=== PATIENT | female | born 1995 | race Hispanic/Latino ===

== ENCOUNTER 2018-08-15 17:51 | Inpatient (IN) | payer MEDICAID ==
[2018-08-15] MEDS ORDERED: BRETHINE SUB-Q PRN (18:12)
[2018-08-15] MEDS ORDERED: XYLOCAINE 2% INFILTRATI ONE (18:12)
[2018-08-15] MEDS ORDERED: MINERAL OIL PO PRN (18:12)
[2018-08-15] MEDS ORDERED: BRETHINE IVP PRN (18:12)
[2018-08-15] MEDS ORDERED: ZOFRAN IV PRN (18:12)
--- NOTE | 2018-08-15 18:12 | History and Physical Report ---
History of Present Illness Date of examination: 08/15/18 Date of admission: 08/15/18 17:53 Chief complaint: sent from [facility] History of present illness: Pt sent for IOL from [facility] due to having oligo and being GDM diet controlled at 38.6 weeks. Report on chart. GBS is negative EDC Calculations LMP: 08/23/2018 EDC Confirmation: 08/23/2018 Gestational Age: 17 5/7 weeks Past History : 2 Term Births: 1 Premature Births: 0 Living Children: 1 Para: 1 Mult. Births: 0 Prev : 0 Aborta: 0 Elect. Ab: 0 Spont. Ab: 0 Ectopics: 0 # 1 Delivery date: 08/13/2016 Weeks Gestation: 39 labor: no Delivery type: Hours of labor: 36 Anesthesia type: epidural Delivery location: [facility] Infant Sex: Male weight: 7-12 Name: Laurent Past Medical History: Bicornuate uterus Past Surgical History: Negative Past Surgical History Family History Summary: Other family member - Has No Family History of Ovarvian Cancer - Entered On: 03/20/2018 Other family member - Has No Family History of Colon Cancer - Entered On: 03/20/2018 Other family member - Has No Family History of Breast Cancer - Entered On: 03/20/2018 Other family member - Has Family History of Diabetes - Entered On: 03/20/2018 Social History: Marital Status: engaged Children: 1 Occupation: [employer] Risk Factors: Smoked Tobacco Use: Current every day smoker Cigarettes: Yes -- 2 pack(s) per day, Years smoked: 2013 Counseled to quit/cut down: yes Drug use: no HIV high-risk behavior: low risk Alcohol use: yes Drinks per day: social Dietary Counseling: pn yes Past Medical History 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 of genital herpes: no Genetic History Congenital Heart Defect: Mom: no Dad: no Yvonne Disease: Mom: no Dad: no Thalassemia Mom: no Dad: no Neural Tube Defect Mom: no Dad: no Down's Syndrome Mom: no Dad: no Fredy-Sachs Mom: no Dad: no Sickle Cell Disease/Trait Mom: no Dad: no Hemophilia Mom: no Dad: no Muscular Dystrophy Mom: no Dad: no Cystic Fibrosis Mom: no Dad: no Nichols Chorea Mom: no Dad: no Mental Retardation Mom: no Dad: no Fragile X Mom: no Dad: no Other Genetic/Chromosomal Disorder Mom: no Dad: no Child w/other defect Mom: no Dad: no Enviromental Exposures Xray Exposure: no Medication, drug, or alcohol use since LMP: no Chemical/Other Exposure: no Exposure to Cat Liter: yes Active Medications (reviewed today): ZOLOFT 25 MG ORAL TABLET (SERTRALINE HCL) Current Allergies (reviewed today): No known allergies Past History Past Medical History: other (see hpi) Past Surgical History: other (see hpi) COUNSELLORS History: other (see hpi) Family/Genetic History: other (see hpi) Social history: other (see hpi) - Obstetrical History Expected Date of Delivery: 08/23/18 Actual Gestation: 38 Week(s) 6 Day(s) : 2 Para: 1 Hx # Term Pregnancies: 1 (full term; GDM) Number of Living Children: 1 Medications and Allergies Allergies Allergy/AdvReac Type Severity Reaction Status Date / Time No Known Allergies Allergy Unverified 08/15/18 18:08 Review of Systems All systems: negative - Physical Exam Genitourinary (Female): Positive: other (cx 1cm as per charge nurse ) Results All other labs normal. Assessment and Plan - Patient Problems (1) 38 weeks gestation of Current Visit: Yes Status: Acute (2) GDM (gestational diabetes mellitus) Current Visit: Yes Status: Acute Qualifiers: Gestational diabetes mellitus control: diet-controlled Trimester: third trimester (3) Oligohydramnios in najera in third trimester Current Visit: Yes Status: Acute Plan to address problem: -admit -IOL as per MFM recommendations
[2018-08-15] MEDS ORDERED: PITOCin/NS 30 UNIT/500ML 30 UNITS/500 ML BAG IV SCH (19:00)
[2018-08-15] MEDS ORDERED: PITOCin/NS 20 UNIT/1000ML DRIP 20 UNITS/1,000 ML BAG IV SCH (19:00)
[2018-08-15] MEDS ORDERED: CERVIDIL VG ONE (20:00)
[2018-08-15 20:08] LABS: Hematocrit 33.7 % (30.3-42.9); Hemoglobin 11.7 gm/dl (10.1-14.3); Mean Corpuscular HGB Conc 35 % (30-34); Mean Corpuscular Volume 83 fl (79-97); Platelet Count 280 K/mm3 (140-440); Red Blood Count 4.05 M/mm3 (3.65-5.03); Red Cell Distribution Width 14.8 % (13.2-15.2)
--- NOTE | 2018-08-16 06:09 | Progress Note ---
Assessment and Plan Pt sleeping soundly thru irregular mild ctx. Pt voices no c/o. VSS Ctx as noted FHR Cat 1. Deferred SVE @ this time. IUP @ 39w IOL Oligo & GDM diet P: Cervidil in place to be removed @ 1100. AM care and diet BS now. Subjective - Subjective Date of service: 08/16/18 (IOL Cervidil in place) Principal diagnosis: IOL 39w0d GDM; oligo Patient reports: movement normal Objective - Vital Signs Vital Signs: Vital Signs - 12hr 08/15/18 08/15/18 08/15/18 18:29 19:11 19:14 Temperature 97.5 F L Pulse Rate 94 H 86 Respiratory 18 Rate Blood Pressure 121/64 O2 Sat by Pulse 96 Oximetry 08/15/18 08/15/18 08/15/18 19:30 22:30 22:34 Temperature 97.7 F Pulse Rate 92 H 102 H Respiratory 18 Rate Blood Pressure O2 Sat by Pulse 96 96 Oximetry 08/15/18 08/15/18 08/15/18 22:37 22:39 22:42 Temperature Pulse Rate 92 H 95 H 91 H Respiratory Rate Blood Pressure O2 Sat by Pulse 94 94 94 Oximetry 08/15/18 08/15/18 08/15/18 22:45 22:48 22:49 Temperature Pulse Rate 92 H 94 H 102 H Respiratory Rate Blood Pressure O2 Sat by Pulse 94 94 94 Oximetry 08/15/18 08/15/18 08/15/18 22:54 23:00 23:03 Temperature 98.0 F Pulse Rate 104 H 92 H 92 H Respiratory 18 Rate Blood Pressure 131/70 O2 Sat by Pulse 92 92 Oximetry 08/15/18 08/15/18 08/15/18 23:04 23:07 23:10 Temperature Pulse Rate 90 99 H Respiratory Rate Blood Pressure O2 Sat by Pulse 92 93 93 Oximetry 08/15/18 08/15/18 08/15/18 23:14 23:20 23:22 Temperature Pulse Rate 90 96 H 93 H Respiratory Rate Blood Pressure O2 Sat by Pulse 92 98 94 Oximetry 08/15/18 08/15/18 08/15/18 23:25 23:30 23:34 Temperature Pulse Rate 90 97 H 96 H Respiratory Rate Blood Pressure O2 Sat by Pulse 93 91 92 Oximetry 08/15/18 08/15/18 08/15/18 23:39 23:45 23:50 Temperature Pulse Rate 94 H 85 91 H Respiratory Rate Blood Pressure O2 Sat by Pulse 92 93 93 Oximetry 08/15/18 08/15/18 08/15/18 23:54 23:58 23:59 Temperature Pulse Rate 96 H 96 H 97 H Respiratory Rate Blood Pressure O2 Sat by Pulse 93 94 94 Oximetry 08/16/18 08/16/18 08/16/18 00:04 00:10 00:13 Temperature Pulse Rate 97 H 102 H 101 H Respiratory Rate Blood Pressure O2 Sat by Pulse 93 94 94 Oximetry 08/16/18 08/16/18 08/16/18 00:15 00:19 00:24 Temperature Pulse Rate 89 94 H 95 H Respiratory Rate Blood Pressure O2 Sat by Pulse 95 93 93 Oximetry 08/16/18 08/16/18 08/16/18 00:29 00:34 00:39 Temperature Pulse Rate 95 H 98 H 96 H Respiratory Rate Blood Pressure O2 Sat by Pulse 94 94 94 Oximetry 08/16/18 08/16/18 08/16/18 00:42 00:44 00:50 Temperature Pulse Rate 94 H 99 H 96 H Respiratory Rate Blood Pressure O2 Sat by Pulse 94 93 93 Oximetry 08/16/18 08/16/18 08/16/18 00:53 00:54 00:59 Temperature Pulse Rate 94 H 102 H 104 H Respiratory Rate Blood Pressure O2 Sat by Pulse 94 94 95 Oximetry 08/16/18 08/16/18 08/16/18 01:04 01:09 01:11 Temperature Pulse Rate 90 94 H 96 H Respiratory Rate Blood Pressure 120/58 O2 Sat by Pulse 95 94 94 Oximetry 08/16/18 08/16/18 08/16/18 01:14 01:18 01:19 Temperature Pulse Rate 99 H 98 H 101 H Respiratory Rate Blood Pressure O2 Sat by Pulse 95 94 94 Oximetry 08/16/18 08/16/18 08/16/18 01:24 01:29 01:34 Temperature Pulse Rate 95 H 100 H 100 H Respiratory Rate Blood Pressure O2 Sat by Pulse 96 98 97 Oximetry 08/16/18 08/16/18 08/16/18 01:40 01:45 01:50 Temperature Pulse Rate 97 H 99 H 104 H Respiratory Rate Blood Pressure O2 Sat by Pulse 97 97 98 Oximetry 08/16/18 08/16/18 08/16/18 01:55 02:00 02:05 Temperature Pulse Rate 100 H 101 H 97 H Respiratory Rate Blood Pressure O2 Sat by Pulse 97 97 97 Oximetry 08/16/18 08/16/18 08/16/18 02:10 02:15 02:20 Temperature Pulse Rate 96 H 100 H 100 H Respiratory Rate Blood Pressure O2 Sat by Pulse 97 96 96 Oximetry 08/16/18 08/16/18 08/16/18 02:25 02:30 02:35 Temperature Pulse Rate 96 H 92 H 95 H Respiratory Rate Blood Pressure O2 Sat by Pulse 95 96 95 Oximetry 08/16/18 08/16/18 08/16/18 02:40 02:49 02:54 Temperature Pulse Rate 85 90 94 H Respiratory Rate Blood Pressure O2 Sat by Pulse 95 95 94 Oximetry 08/16/18 08/16/18 08/16/18 02:59 03:01 03:02 Temperature Pulse Rate 100 H 98 H 100 H Respiratory Rate Blood Pressure 117/65 O2 Sat by Pulse 94 94 Oximetry 08/16/18 08/16/18 08/16/18 03:04 03:09 03:14 Temperature Pulse Rate 98 H 94 H 103 H Respiratory Rate Blood Pressure O2 Sat by Pulse 95 94 94 Oximetry 08/16/18 03:17 Temperature Pulse Rate 93 H Respiratory Rate Blood Pressure O2 Sat by Pulse 94 Oximetry - Exam Breasts: deferred Cardiovascular: Regular rate Lungs: Normal air movement Abdomen: Present: normal appearance, soft. Absent: distention, tenderness Uterus: Present: normal FHR: auscultation normal, category 1 Uterine Contraction Monitor Mode: External Uterine Contraction Pattern: Irregular Uterine Tone Measurement Phase: Resting Uterine Contraction Intensity: Mild Extremities: edema Deep Tendon Reflex Grade: Normal +2 - Labs Labs: Abnormal Labs 08/15/18 19:50 MCHC 35 H Laboratory Results - last 24 hr 08/15/18 08/15/18 08/15/18 18:15 19:50 19:50 WBC 9.5 RBC 4.05 Hgb 11.7 Hct 33.7 MCV 83 MCH 29 MCHC 35 H RDW 14.8 Plt Count 280 POC Glucose 89 Blood Type AB POSITIVE Antibody Screen Negative
[2018-08-16] MEDS: SUBLIMAZE IV PRN ×2 (06:48→10:54)
--- NOTE | 2018-08-16 07:22 | Event Note ---
Date: 08/16/18 (pt requested and was given medication for pain) SVE 1-2,50,-[address] Will plan pitocin per protocol once cervidil is removed.
[2018-08-16] MEDS: LACTATED RINGERS 1,000 ML IV SCH ×3 (09:51→12:36)
[2018-08-16] MEDS ORDERED: PITOCin/NS 30 UNIT/500ML 30 UNITS/500 ML BAG IV SCH (10:00)
[2018-08-16] MEDS ORDERED: NARCAN 2 MG/2 ML IV PRN (11:51)
--- NOTE | 2018-08-16 11:51 | Anesthesia Consultation ---
Anesthesia Consult and Med Hx Date of service: 08/16/18 - Airway Anesthetic Teeth Evaluation: Good ROM Head & Neck: Adequate Mental/Hyoid Distance: Adequate Mallampati Class: Class II Intubation Access Assessment: Good - Pulmonary Exam CTA: Yes - Cardiac Exam Cardiac Exam: No Murmur - Pre-Operative Health Status ASA Pre-Surgery Classification: ASA2 Proposed Anesthetic Plan: Epidural - Pulmonary Hx Asthma: No COPD: No Hx Pneumonia: No - Cardiovascular System Hx Hypertension: No - Central Nervous System Hx Seizures: No Hx Psychiatric Problems: No - Endocrine Hx Renal Disease: No Hx End Stage Renal Disease: No Hx Hypothyroidism: No Hx Hyperthyroidism: No - Hematic Hx Anemia: No Hx Sickle Cell Disease: No - Other Systems Hx Alcohol Use: No
[2018-08-16] MEDS ORDERED: fentaNYL-BUPIV 2 MCG/ML-0.125% 200 MCG/100 ML BAG EPIDURAL SCH (12:00)
[2018-08-16] MEDS ORDERED: TUCKS PAD TP PRN (18:31)
[2018-08-16] MEDS ORDERED: TYLENOL PO PRN (18:31)
[2018-08-16] MEDS ORDERED: MILK OF MAGNESIA PO PRN (18:31)
[2018-08-16] MEDS ORDERED: LANSINOH TP PRN (18:31)
[2018-08-16] MEDS ORDERED: DULCOLAX PR PRN (18:31)
[2018-08-16] MEDS ORDERED: PHENERGAN PO PRN (18:31)
--- NOTE | 2018-08-16 18:54 | Procedure Note ---
OB Delivery Note - Delivery Date of Delivery: 08/16/18 Cafe Site Attendant: JOSEPH NARANJO Estimated blood loss: 300cc - Vaginal Delivery presentation: vertex Delivery position: OA Intrapartum events: other(please specify) (oligo; GDM diet) Delivery induction: cervidil Delivery augmentation: pitocin Delivery monitor: internal FHT, internal uterine Route of delivery: Delivery placenta: spontaneous Delivery cord: 3 umbilical vessels Episiotomy: none Delivery laceration: none Anesthesia: epidural Delivery comments: live born male over intact perineum Baby to mom's abdomen skin to skin Placenta and membrane delivered complete and intact, 3 vessel cord. Placenta and membrane sent to pathology. Pit IVFs 8/9, EBL 300, Wgt 6-15. Mom and baby remain LDR stable. - A at 1 minute: 8 at 5 minutes: 9 Infant Gender: Male (wgt 6-15)
[2018-08-16] MEDS ORDERED: SODIUM CHLORIDE FLUSH SYRINGE 10 ML IV SCH (19:00)
[2018-08-16] MEDS ORDERED: BENADRYL PO PRN (19:31)
[2018-08-16] MEDS ORDERED: PITOCin/NS 20 UNIT/1000ML DRIP 20,000 MILLIUNITS/1,000 ML BAG IV ONE (20:12)
[2018-08-16] MEDS: IBUPROFEN PO SCH (20:43)
[2018-08-16] MEDS: COLACE PO SCH (22:00)
[2018-08-17] MEDS: IBUPROFEN PO SCH ×3 (05:56→18:46)
[2018-08-17] MEDS ORDERED: BOOSTRIX IM ONE (06:00)
[2018-08-17 07:49] LABS: Hematocrit 31.2 % (30.3-42.9); Hemoglobin 10.3 gm/dl (10.1-14.3)
--- NOTE | 2018-08-17 08:15 | Progress Note ---
Assessment and Plan patient doing well, no complaints. lochia scant, fundus firm, VSSAF, H&H 10.3/31.2. Pt bottle feeding and pumping. Continue current management and anticipate d/c home tomorrow. - Patient Problems (1) Normal spontaneous vaginal delivery Current Visit: Yes Status: Acute Subjective - Subjective Date of service: 08/17/18 Principal diagnosis: day #1 s/p Patient reports: appetite normal, voiding normally, pain well controlled, ambulating normally, no dizzy ambulation, no nauseated [place]: doing well, bottle feeding Objective - Vital Signs Latest vital signs: Vital Signs Temp Pulse Resp BP Pulse Ox 08/17/18 05:47 97.4 F L 82 18 128/68 96 08/17/18 01:11 97.7 F 91 H 18 119/73 96 08/16/18 20:19 18 08/16/18 19:51 98.8 F 101 H 18 112/66 95 08/16/18 19:20 102 H 128/62 08/16/18 19:05 112 H 120/71 08/16/18 18:50 103 H 123/67 08/16/18 18:35 107 H 124/60 08/16/18 18:30 97.2 F L 08/16/18 18:05 117 H 123/58 08/16/18 18:03 118 H 120/84 08/16/18 17:41 122 H 98 08/16/18 17:35 136 H 117/77 08/16/18 17:21 117 H 122/73 08/16/18 17:05 109 H 129/67 08/16/18 16:51 108 H 122/66 08/16/18 16:36 109 H 125/62 08/16/18 16:20 106 H 113/62 08/16/18 16:05 104 H 111/59 08/16/18 15:51 100 H 124/63 08/16/18 15:36 112 H 123/71 08/16/18 15:20 109 H 120/65 08/16/18 15:05 113 H 126/72 08/16/18 14:50 93 H 120/60 08/16/18 14:35 94 H 113/56 08/16/18 14:20 91 H 111/57 08/16/18 14:12 97.1 F L 20 08/16/18 14:05 86 104/51 08/16/18 13:51 84 103/52 08/16/18 13:35 85 98/50 08/16/18 13:20 97 H 103/49 08/16/18 13:06 92 H 128/58 08/16/18 12:51 99 H 119/61 08/16/18 12:36 106 H 114/66 08/16/18 12:22 101 H 93 08/16/18 12:20 101 H 96 08/16/18 12:17 93 H 108/53 08/16/18 12:15 105 H 94 08/16/18 12:14 97 H 109/55 08/16/18 12:12 103 H 115/59 08/16/18 12:09 109 H 108/58 98 08/16/18 12:06 102 H 108/59 08/16/18 12:04 103 H 95 08/16/18 12:03 109 H 112/59 08/16/18 12:00 105 H 118/63 08/16/18 11:59 110 H 98 08/16/18 11:56 100 H 120/62 08/16/18 11:54 113 H 97 08/16/18 11:53 105 H 119/66 08/16/18 11:51 94 H 118/57 08/16/18 11:50 96 H 94 08/16/18 11:49 90 96 08/16/18 11:48 100 H 126/68 08/16/18 11:44 100 H 129/71 96 08/16/18 11:39 108 H 137/67 97 08/16/18 11:34 102 H 97 08/16/18 11:26 92 H 123/63 08/16/18 11:09 91 H 122/63 08/16/18 10:54 89 125/62 08/16/18 10:39 90 124/60 08/16/18 10:25 93 H 127/65 08/16/18 10:10 95 H 97/53 08/16/18 09:55 93 H 133/58 08/16/18 09:25 86 100/53 08/16/18 08:25 92 H 126/65 Intake and Output 08/16/18 08/17/18 08/17/18 23:59 07:59 15:59 Intake Total 360 Output Total 800 Balance -440 Intake: Intake, Free Water 360 Output: Urine 800 Void 800 Other: Total, Output Amount 800 # Voids Void 1 Estimated Blood Loss 300 - Exam Breasts: Present: normal Cardiovascular: Present: Regular rate Lungs: Present: Clear to auscultation, Normal air movement Abdomen: Present: normal appearance, soft Vulva: both: normal Uterus: Present: normal, firm, fundal height at umbilicus Extremities: Present: normal
[2018-08-17] MEDS: COLACE PO SCH ×2 (10:22→21:17)
[2018-08-17] MEDS ORDERED: M-M-R II VACCINE SUB-Q ONE (18:31)
[2018-08-18] MEDS: IBUPROFEN PO SCH ×2 (00:45→06:01)
--- NOTE | 2018-08-18 08:32 | Discharge Summary ---
Providers - Providers Date of Admission: 08/15/18 17:53 Date of discharge: 08/18/18 (pt agrees with d/c) Attending physician: AMIRAH HAQ Primary care physician: AMIRAH HAQ Hospitalization Reason for admission: active labor Delivery: Episiotomy: none Laceration: none Incision: normal Other procedures: none complications: none Discharge diagnosis: IUP at term delivered [place] baby: male (declines circumcision) Hospital course: uncomplicated vaginal delivery Pt resting No c/o voiced VSS FF below umb Lochia small perineum intact H&H s table No s/sx of anemia Doing well s/p vag delivery P: d/c today with instructions RTO 4 weeks PP care. Condition at discharge: Good Disposition: DC-01 TO HOME OR SELFCARE - Discharge Diagnoses (1) Normal spontaneous vaginal delivery Status: Acute Comment: RTO 4 weeks PP care Plan - Discharge Medications Prescriptions: Ibuprofen [Motrin 800 MG tab] 800 mg PO TID PRN #30 tablet PRN Reason: Pain Lidocain2.5%/Prilocai2.5% [Emla] 5 gm TP PRN #1 tube - Provider Discharge Summary Activity: routine, no sex for 6 weeks, no heavy lifting 4 weeks, no strenuous exercise Diet: routine Instructions: routine Additional instructions: [] Smoking cessation referral if applicable(refer to patient education folder for contact #) [] Refer to [facility]'s [facility] Booklet Call your doctor immediately for: * Fever > 100.5 * Heavy vaginal bleeding ( >1 pad per hour) * Severe persistent headache * Shortness of breath * Reddened, hot, painful area to leg or breast * Drainage or odor from incision. * Keep incision clean and dry at all times and follow doctor's instructions regarding bathing/showering - Follow up plan Follow up: AMIRAH HAQ MD [Primary Care Provider] - 09/17/18 (Congratulations! Please call [phone] to schedule your visit in 4 weeks. Take Motrin for cramping/pain. Call with concerns.)
[2018-08-18 13:33] VITALS: BP 128/77
== END 2018-08-18 13:11 | disposition home or self-care (01) | DRG 775 ==
LOC: TRG 17:51 → LD 17:53 → OB 08-16 19:44
PROVIDERS: ADMIT Obstetrics & Gynecology; ATTEND Obstetrics & Gynecology
PROC: 10E0XZZ Delivery of Products of Conception, External Approach (ICD-10-PCS; principal; 2018-08-16)
PROC: 3E0R3BZ Introduction of Anesthetic Agent into Spinal Canal, Percutaneous Approach (ICD-10-PCS; 2018-08-16)
PROC: 00HU33Z Insertion of Infusion Device into Spinal Canal, Percutaneous Approach (ICD-10-PCS; 2018-08-16)
PROC: 3E0P7VZ Introduction of Hormone into Female Reproductive, Via Natural or Artificial Opening (ICD-10-PCS; 2018-08-16)
PROC: 3E0234Z Introduction of Serum, Toxoid and Vaccine into Muscle, Percutaneous Approach (ICD-10-PCS; 2018-08-17)
DX: O41.03X0 Oligohydramnios, third trimester, not applicable or unspecified (principal); O34.03 Maternal care for unspecified congenital malformation of uterus, third trimester; O99.334 Smoking (tobacco) complicating childbirth; F17.210 Nicotine dependence, cigarettes, uncomplicated; O24.420 Gestational diabetes mellitus in childbirth, diet controlled; O99.314 Alcohol use complicating childbirth; Z3A.38 38 weeks gestation of pregnancy; Z37.0 Single live birth; Z83.3 Family history of diabetes mellitus; Z72.89 Other problems related to lifestyle; Q51.9 Congenital malformation of uterus and cervix, unspecified; Z23 Encounter for immunization
CPT/HCPCS: 36415; 59200; 82962; 85014; 85018; 85027; 86592; 86850; 86900; 86901; 88307; 90471; 90715; G0378; A6250; J2405; J2590; J3010; J7120

== ENCOUNTER 2019-04-10 04:07 | Emergency (ER) | payer SELFPAY ==
[2019-04-10 04:27] LABS: Basophils # (Auto) 0.1 K/mm3 (0.0-0.1); Basophils % (Auto) 0.6 % (0.0-1.8); Eosinophils # (Auto) 0.1 K/mm3 (0.0-0.4); Eosinophils % (Auto) 1.2 % (0.0-4.3); Hemoglobin 13.5 gm/dl (10.1-14.3); Lymphocytes # (Auto) 4.2 K/mm3 (1.2-5.4); Lymphocytes % (Auto) 43.3 % (13.4-35.0); Mean Corpuscular HGB Conc 34 % (30-34); Mean Corpuscular Volume 85 fl (79-97); Monocytes # (Auto) 0.5 K/mm3 (0.0-0.8); Monocytes % (Auto) 5.2 % (0.0-7.3); Platelet Count 306 K/mm3 (140-440); Red Blood Count 4.69 M/mm3 (3.65-5.03); Red Cell Distribution Width 16.2 % (13.2-15.2)
[2019-04-10 04:59] LABS: Alanine Aminotransferase 13 units/L (7-56); Albumin 3.8 g/dL (3.9-5); BUN/Creatinine Ratio 23; Blood Urea Nitrogen 14 mg/dL (7-17); Calcium 9.4 mg/dL (8.4-10.2); Hemolysis Index 19
[2019-04-10 05:22] LABS: Bacteria,Urine 2+ /HPF (Negative); Bilirubin,Urine NEG (Negative); Blood,Urine NEG (Negative); Color,Urine Yellow (Yellow); Mucus,Urine FEW /HPF; Protein,Urine <15 mg/dL mg/dL (Negative); Urobilinogen,Urine < 2.0 mg/dL (<2.0)
--- NOTE | 2019-04-10 06:45 | XRay Report ---
CHEST 2 VIEWS INDICATION: chest pain right. COMPARISON: None. FINDINGS: Support devices: None. Heart: Within normal limits. Lungs/Pleura: No acute air space or interstitial disease. No significant pleural effusion. IMPRESSION: No acute findings. Signer Name: Josesito Del Angel MD Signed: 04/10/2019 6:41 AM Workstation Name: [id number]
--- NOTE | 2019-04-10 07:01 | Emergency Department Report ---
ED General Adult HPI - General Chief complaint: Abdominal Pain Stated complaint: ABD PAIN Time Seen by Provider: 04/10/19 05:46 Source: patient Mode of arrival: Ambulatory Limitations: No Limitations - History of Present Illness Initial comments: 23-year-old female to emergency department complaining of spontaneous an acute onset of right flank/back pain associated with a productive cough pain that worsens with deep breathing. She reports no dysuria, no vaginal discharge, no vaginal bleeding, no trauma. Reports no hemoptysis, no hematemesis, hematochezia. No fever, chills, sweats. Patient states she was fine on the on yesterday, woke up with this discomfort.. -: Sudden, hour(s) Radiation: non-radiation Quality: aching, sharp Consistency: constant Improves with: none Worsens with: none Associated Symptoms: cough. denies: loss of appetite, malaise, nausea/vomiting, shortness of breath, syncope, weakness Treatments Prior to Arrival: none - Related Data Home Medications Medication Instructions Recorded Confirmed Last Taken Vit,Calc76/Iron/Folic 1 each PO DAILY 08/15/18 08/15/18 1 Week Ago [Pnv 29-1 Tablet] ~08/08/18 Previous Rx's Medication Instructions Recorded Last Taken Type Ibuprofen [Motrin 800 MG tab] 800 mg PO TID PRN #30 tablet 08/18/18 Unknown Rx Lidocain2.5%/Prilocai2.5% [Emla] 5 gm TP PRN #1 tube 08/18/18 Unknown Rx Benzonatate [Tessalon Perles] 100 mg PO Q8HR PRN #20 capsule 04/10/19 Unknown Rx Ketorolac [Toradol] 10 mg PO Q6H PRN #15 tablet 04/10/19 Unknown Rx Allergies Allergy/AdvReac Type Severity Reaction Status Date / Time No Known Allergies Allergy Verified 04/10/19 04:13 ED Review of Systems ROS: Stated complaint: ABD PAIN Other details as noted in HPI Comment: All other systems reviewed and negative ED Past Medical Hx - Past Medical History Hx Hypertension: No Hx Congestive Heart Failure: No Hx Diabetes: Yes (gestational only) Hx Deep Vein Thrombosis: No Hx Renal Disease: No Hx Sickle Cell Disease: No Hx Seizures: No Hx Asthma: No Hx COPD: No Hx HIV: No - Surgical History Past Surgical History?: No - Social History Smoking Status: Current Every Day Smoker Substance Use Type: Methamphetamines - Medications Home Medications: Home Medications Medication Instructions Recorded Confirmed Last Taken Type Vit,Calc76/Iron/Folic 1 each PO DAILY 08/15/18 08/15/18 1 Week Ago History [Pnv 29-1 Tablet] ~08/08/18 Ibuprofen [Motrin 800 MG tab] 800 mg PO TID PRN #30 tablet 08/18/18 Unknown Rx Lidocain2.5%/Prilocai2.5% [Emla] 5 gm TP PRN #1 tube 08/18/18 Unknown Rx Benzonatate [Tessalon Perles] 100 mg PO Q8HR PRN #20 capsule 04/10/19 Unknown Rx Ketorolac [Toradol] 10 mg PO Q6H PRN #15 tablet 04/10/19 Unknown Rx ED Physical Exam - General Limitations: No Limitations General appearance: alert, in no apparent distress - Head Head exam: Present: atraumatic, normocephalic - Eye Eye exam: Present: normal appearance, PERRL, EOMI Pupils: Present: normal accommodation - ENT ENT exam: Present: normal exam, normal orophraynx, mucous membranes moist, TM's normal bilaterally - Neck Neck exam: Present: normal inspection, full ROM. Absent: meningismus, ly mphadenopathy, thyromegaly - Respiratory Respiratory exam: Present: normal lung sounds bilaterally, chest wall tenderness (tenderness to the right rib region.). Absent: respiratory distress, rales, rhonchi, stridor, accessory muscle use, decreased breath sounds, prolonged expiratory - Cardiovascular Cardiovascular Exam: Present: regular rate, normal rhythm. Absent: systolic murmur, diastolic murmur, rubs, gallop - GI/Abdominal GI/Abdominal exam: Present: soft, normal bowel sounds - Extremities Exam Extremities exam: Present: normal inspection - Back Exam Back exam: Present: normal inspection - Neurological Exam Neurological exam: Present: alert, oriented X3 - Psychiatric Psychiatric exam: Present: normal affect, normal mood - Skin Skin exam: Present: warm, dry, intact, normal color. Absent: rash ED Medical Decision Making - Lab Data Result diagrams: 04/10/19 04:17 04/10/19 04:17 - Radiology Data Radiology results: report reviewed (no acute processes) - Medical Decision Making 23-year-old female to emergency Department with her mom who is here for chronic back pain complaining of sudden onset of rib pain associated with cough, conge stion. Labs and chest x-ray all were normal and not suggestive of any pneumonia or severe bronchitis. Pain is reproducible with various range of motion and palpation. Suggestive of a costochondral discomfort. There is no deformities noted. No subcutaneous emphysema. No bruising lifts heaves, thrills. There appears to be no emergent medical conditions present Critical care attestation.: If time is entered above; I have spent that time in minutes in the direct care of this critically ill patient, excluding procedure time. ED Disposition Clinical Impression: Cough, Rib pain Disposition: DC-01 TO HOME OR SELFCARE Is pt being admited?: No Does the pt Need Aspirin: No Condition: Stable Instructions: Abdominal Pain (ED), Chest Pain (ED), Acute Cough (ED) Referrals: PRIMARY CARE [Primary Care Provider] - 3-5 Days [facility] [Provider Group] - 3-5 Days
== END 2019-04-10 07:24 | disposition home or self-care (01) ==
LOC: ED 04:07
DX: R05 Cough (principal); R07.81 Pleurodynia; M54.9 Dorsalgia, unspecified; G89.29 Other chronic pain; E11.9 Type 2 diabetes mellitus without complications; F17.200 Nicotine dependence, unspecified, uncomplicated; F15.10 Other stimulant abuse, uncomplicated; Z79.899 Other long term (current) drug therapy
CPT/HCPCS: 36415; 71046; 80053; 81001; 84703; 85025; 87076; 87086; 87186

== ENCOUNTER 2019-09-12 00:19 | Emergency (ER) | payer SELFPAY ==
[2019-09-12 00:44] VITALS: BP 109/71
[2019-09-12] MEDS ORDERED: MORPHINE 4 MG/1 ML INJ IV ONE (01:47)
[2019-09-12] MEDS ORDERED: ONDANSETRON 4 MG/2 ML INJ IV ONE (01:47)
[2019-09-12 01:50] LABS: Basophils % (Auto) 0.3 % (0.0-1.8); Eosinophils # (Auto) 0.1 K/mm3 (0.0-0.4); Eosinophils % (Auto) 0.8 % (0.0-4.3); Hematocrit 37.1 % (30.3-42.9); Hemoglobin 12.3 gm/dl (10.1-14.3); Lymphocytes # (Auto) 2.5 K/mm3 (1.2-5.4); Lymphocytes % (Auto) 25.7 % (13.4-35.0); Mean Corpuscular HGB Conc 33 % (30-34); Mean Corpuscular Volume 89 fl (79-97); Monocytes # (Auto) 0.5 K/mm3 (0.0-0.8); Monocytes % (Auto) 5.2 % (0.0-7.3); Platelet Count 306 K/mm3 (140-440); Red Blood Count 4.17 M/mm3 (3.65-5.03); Red Cell Distribution Width 14.5 % (13.2-15.2)
[2019-09-12 02:09] LABS: Albumin 3.8 g/dL (3.9-5); BUN/Creatinine Ratio 24; Blood Urea Nitrogen 12 mg/dL (7-17); Calcium 9.2 mg/dL (8.4-10.2); Hemolysis Index 5
[2019-09-12 02:12] LABS: Alanine Aminotransferase < 5 units/L (7-56)
--- NOTE | 2019-09-12 02:17 | Emergency Department Report ---
ED Abdominal Pain HPI - General Chief Complaint: Abdominal Pain Stated Complaint: ABDOMINAL PAIN Time Seen by Provider: 09/12/19 01:16 Source: patient Mode of arrival: Ambulatory Limitations: No Limitations - History of Present Illness Initial Comments: 23-year-old female without significant past medical history presents with complaints of right upper quadrant/right flank pain 2 days. States the pain was intermittent and is now constant. She rates her pain as a 10/10 in severity and describes it as a stabbing type pain that worsens with ambulation and lying on her right side. She denies any nausea/vomiting, dysuria/hematuria/urinary frequency, constipation/melena/hematochezia, or history of gallstones or kidney stones. She also denies any trauma to her abdomen or right ribs. She denies worsening of the pain with food intake. MD Complaint: abdominal pain, flank pain Location: RUQ, R flank - Related Data Home Medications Medication Instructions Recorded Confirmed Last Taken Vit,Calc76/Iron/Folic 1 each PO DAILY 08/15/18 08/15/18 1 Week Ago [Pnv 29-1 Tablet] ~08/08/18 Previous Rx's Medication Instructions Recorded Last Taken Type Ibuprofen [Motrin 800 MG tab] 800 mg PO TID PRN #30 tablet 08/18/18 Unknown Rx Lidocain2.5%/Prilocai2.5% [Emla] 5 gm TP PRN #1 tube 08/18/18 Unknown Rx Benzonatate [Tessalon Perles] 100 mg PO Q8HR PRN #20 capsule 04/10/19 Unknown Rx Ketorolac [Toradol] 10 mg PO Q6H PRN #15 tablet 04/10/19 Unknown Rx Acetaminophen/Codeine [Tylenol 1 tab PO Q8H PRN #8 tab 09/12/19 Unknown Rx /Codeine # 3 tab] Ciprofloxacin HCl [Ciprofloxacin 500 mg PO Q12HR 7 Days #14 tab 09/12/19 Unknown Rx TAB] Allergies Allergy/AdvReac Type Severity Reaction Status Date / Time No Known Allergies Allergy Verified 04/10/19 04:13 ED Review of Systems ROS: Stated complaint: ABDOMINAL PAIN Other details as noted in HPI Constitutional: denies: chills, diaphoresis, fever Respiratory: denies: cough, shortness of breath Cardiovascular: denies: chest pain Endocrine: denies: excessive sweating Gastrointestinal: abdominal pain. denies: nausea, vomiting, diarrhea, constipation, hematemesis, melena, hematochezia Genitourinary: denies: urgency, dysuria, frequency, hematuria Musculoskeletal: denies: back pain Skin: denies: lesions Neurological: denies: headache, weakness Hematological/Lymphatic: denies: easy bleeding, easy bruising ED Past Medical Hx - Past Medical History Previous Medical History?: Yes Hx Hypertension: No Hx Congestive Heart Failure: No Hx Diabetes: Yes (gestational only) Hx Deep Vein Thrombosis: No Hx Renal Disease: No Hx Sickle Cell Disease: No Hx Seizures: No Hx Asthma: No Hx COPD: No Hx HIV: No - Surgical History Past Surgical History?: No - Social History Smoking Status: Current Every Day Smoker Substance Use Type: None - Medications Home Medications: Home Medications Medication Instructions Recorded Confirmed Last Taken Type Vit,Calc76/Iron/Folic 1 each PO DAILY 08/15/18 08/15/18 1 Week Ago History [Pnv 29-1 Tablet] ~08/08/18 Ibuprofen [Motrin 800 MG tab] 800 mg PO TID PRN #30 tablet 08/18/18 Unknown Rx Lidocain2.5%/Prilocai2.5% [Emla] 5 gm TP PRN #1 tube 08/18/18 Unknown Rx Benzonatate [Tessalon Perles] 100 mg PO Q8HR PRN #20 capsule 04/10/19 Unknown Rx Ketorolac [Toradol] 10 mg PO Q6H PRN #15 tablet 04/10/19 Unknown Rx Acetaminophen/Codeine [Tylenol 1 tab PO Q8H PRN #8 tab 09/12/19 Unknown Rx /Codeine # 3 tab] Ciprofloxacin HCl [Ciprofloxacin 500 mg PO Q12HR 7 Days #14 tab 09/12/19 Unknown Rx TAB] ED Physical Exam - General Limitations: No Limitations General appearance: alert, in no apparent distress - Head Head exam: Present: atraumatic, normocephalic - Eye Eye exam: Present: normal appearance. Absent: scleral icterus - ENT ENT exam: Present: mucous membranes moist - Neck Neck exam: Present: normal inspection - Respiratory Respiratory exam: Present: normal lung sounds bilaterally. Absent: respiratory distress - Cardiovascular Cardiovascular Exam: Present: regular rate, normal rhythm. Absent: systolic murmur, diastolic murmur, rubs, gallop - GI/Abdominal GI/Abdominal exam: Present: soft, tenderness (right upper quadrant, right upper side), normal bowel sounds. Absent: distended, guarding, rigid - Expanded GI/Abdominal Exam Expanded GI/Abdominal exam: Present: Garcia's sign - Extremities Exam Extremities exam: Present: normal inspection - Back Exam Back exam: Present: normal inspection, CVA tenderness (R). Absent: CVA tenderness (L), paraspinal tenderness, vertebral tenderness - Neurological Exam Neurological exam: Present: alert, oriented X3 - Psychiatric Psychiatric exam: Present: normal affect, normal mood - Skin Skin exam: Present: warm, dry, intact, normal color. Absent: rash ED Course Vital Signs 09/12/19 00:43 Temperature 98.7 F Pulse Rate 97 H Respiratory 18 Rate Blood Pressure 109/71 O2 Sat by Pulse 96 Oximetry - Reevaluation(s) Reevaluation #1: 09/12/19 02:16 WBCs noted to be normal on CBC. Patient is afebrile and nontachycardic ED Medical Decision Making - Lab Data Result diagrams: 09/12/19 01:14 09/12/19 01:14 Lab Results 09/12/19 09/12/19 09/12/19 Range/Units 01:14 01:14 01:14 WBC 9.9 (4.5-11.0) K/mm3 RBC 4.17 (3.65-5.03) M/mm3 Hgb 12.3 (10.1-14.3) gm/dl Hct 37.1 (30.3-42.9) % MCV 89 (79-97) fl MCH 30 (28-32) pg MCHC 33 (30-34) % RDW 14.5 (13.2-15.2) % Plt Count 306 (140-440) K/mm3 Lymph % (Auto) 25.7 (13.4-35.0) % [place] % (Auto) 5.2 (0.0-7.3) % Eos % (Auto) 0.8 (0.0-4.3) % Baso % (Auto) 0.3 (0.0-1.8) % Lymph # 2.5 (1.2-5.4) K/mm3 [place] # 0.5 (0.0-0.8) K/mm3 Eos # 0.1 (0.0-0.4) K/mm3 Baso # 0.0 (0.0-0.1) K/mm3 Seg Neutrophils % 68.0 (40.0-70.0) % Seg Neutrophils # 6.7 (1.8-7.7) K/mm3 Sodium 143 (137-145) mmol/L Potassium 3.7 (3.6-5.0) mmol/L Chloride 105.1 (98-107) mmol/L Carbon Dioxide 26 (22-30) mmol/L Anion Gap 16 mmol/L BUN 12 (7-17) mg/dL Creatinine 0.5 L (0.7-1.2) mg/dL Estimated GFR > 60 ml/min BUN/Creatinine Ratio 24 % Glucose 107 H (65-100) mg/dL Calcium 9.2 (8.4-10.2) mg/dL Total Bilirubin < 0.20 (0.1-1.2) mg/dL AST 12 (5-40) units/L ALT < 5 L (7-56) units/L Alkaline Phosphatase 76 (35-129) units/L Total Protein 7.5 (6.3-8.2) g/dL Albumin 3.8 L (3.9-5) g/dL Albumin/Globulin Ratio 1.0 % Lipase (13-60) units/L HCG, Qual Negative (Negative) Urine Color (Yellow) Urine Turbidity (Clear) Urine pH (5.0-7.0) Ur Specific [place] (1.003-1.030) Urine Protein (Negative) mg/dL Urine Glucose (UA) (Negative) mg/dL Urine Ketones (Negative) mg/dL Urine Blood (Negative) Urine Nitrite (Negative) Urine Bilirubin (Negative) Urine Urobilinogen (<2.0) mg/dL Ur Leukocyte Esterase (Negative) Urine WBC (Auto) (0.0-6.0) /HPF Urine RBC (Auto) (0.0-6.0) /HPF U Epithel Cells (Auto) (0-13.0) /HPF Urine Bacteria (Auto) (Negative) /HPF Urine Mucus /HPF 09/12/19 09/12/19 Range/Units 01:18 01:47 WBC (4.5-11.0) K/mm3 RBC (3.65-5.03) M/mm3 Hgb (10.1-14.3) gm/dl Hct (30.3-42.9) % MCV (79-97) fl MCH (28-32) pg MCHC (30-34) % RDW (13.2-15.2) % Plt Count (140-440) K/mm3 Lymph % (Auto) (13.4-35.0) % [place] % (Auto) (0.0-7.3) % Eos % (Auto) (0.0-4.3) % Baso % (Auto) (0.0-1.8) % Lymph # (1.2-5.4) K/mm3 [place] # (0.0-0.8) K/mm3 Eos # (0.0-0.4) K/mm3 Baso # (0.0-0.1) K/mm3 Seg Neutrophils % (40.0-70.0) % Seg Neutrophils # (1.8-7.7) K/mm3 Sodium (137-145) mmol/L Potassium (3.6-5.0) mmol/L Chloride (98-107) mmol/L Carbon Dioxide (22-30) mmol/L Anion Gap mmol/L BUN (7-17) mg/dL Creatinine (0.7-1.2) mg/dL Estimated GFR ml/min BUN/Creatinine Ratio % Glucose (65-100) mg/dL Calcium (8.4-10.2) mg/dL Total Bilirubin (0.1-1.2) mg/dL AST (5-40) units/L ALT (7-56) units/L Alkaline Phosphatase (35-129) units/L Total Protein (6.3-8.2) g/dL Albumin (3.9-5) g/dL Albumin/Globulin Ratio % Lipase 36 (13-60) units/L HCG, Qual (Negative) Urine Color Yellow (Yellow) Urine Turbidity Slightly-cloudy (Clear) Urine pH 6.0 (5.0-7.0) Ur Specific [place] 1.021 (1.003-1.030) Urine Protein <15 mg/dl (Negative) mg/dL Urine Glucose (UA) Neg (Negative) mg/dL Urine Ketones Neg (Negative) mg/dL Urine Blood Sm (Negative) Urine Nitrite Pos (Negative) Urine Bilirubin Neg (Negative) Urine Urobilinogen 2.0 (<2.0) mg/dL Ur Leukocyte Esterase Mod (Negative) Urine WBC (Auto) 12.0 H (0.0-6.0) /HPF Urine RBC (Auto) 2.0 (0.0-6.0) /HPF U Epithel Cells (Auto) 1.0 (0-13.0) /HPF Urine Bacteria (Auto) 1+ (Negative) /HPF Urine Mucus Few /HPF - Radiology Data Radiology results: report reviewed ULTRASOUND ABDOMEN, LIMITED (RIGHT UPPER QUADRANT) INDICATION: Right upper quadrant pain. COMPARISON: None available. FINDINGS: Pancreas: Visualized portion shows no significant abnormality. Liver: The liver measures 18 cm in length. No focal hepatic lesions are seen. Gallbladder: There is cholelithiasis. There is sludge in the lumen of the gallbladder. Bile ducts: Normal. Common Bile Duct measures 1 mm. Free fluid: None. Additional Findings: None. IMPRESSION: 1. There is cholelithiasis. There is sludge in the lumen of the gallbladder. - Medical Decision Making 23-year-old female significant past medical history presents with complaints of right sided abdominal/flank pain for the past 2 days. CBC shows normal WBCs. UA shows moderate leukoesterase and 12 WBCs. Labs are otherwise WNL. Right upper quadrant ultrasound reports cholelithiasis and gallbladder sludge without cystitis. Patient is afebrile and nontoxic her cardiac. Pain is well controlled with meds given here in ED. Patient is stable for discharge home. Will treat for right sided pyelonephritis given UA findings, however patient's symptoms could also be due to biliary colic. Recommend follow-up with gastroenterology within the next 2-3 days. Discussed very strict return precautions in detail with patient who verbalizes understanding Critical care attestation.: If time is entered above; I have spent that time in minutes in the direct care of this critically ill patient, excluding procedure time. ED Disposition Clinical Impression: Pyelonephritis of right kidney, Cholelithiasis Disposition: - TO HOME OR SELFCARE Is pt being admited?: No Condition: Stable Instructions: Acute Pyelonephritis (ED), Biliary Colic (ED) Additional Instructions: Seek immediate emergency treatment if he developed any new or worsening symptoms Prescriptions: Ciprofloxacin HCl [Ciprofloxacin TAB] 500 mg PO Q12HR 7 Days #14 tab Acetaminophen/Codeine [Tylenol /Codeine # 3 tab] 1 tab PO Q8H PRN #8 tab PRN Reason: Pain , Severe (7-10) Referrals: [facility] [Provider Group] - 2-3 Days
--- NOTE | 2019-09-12 03:05 | Ultrasound Report ---
ULTRASOUND ABDOMEN, LIMITED (RIGHT UPPER QUADRANT) INDICATION: Right upper quadrant pain. COMPARISON: None available. FINDINGS: Pancreas: Visualized portion shows no significant abnormality. Liver: The liver measures 18 cm in length. No focal hepatic lesions are seen. Gallbladder: There is cholelithiasis. There is sludge in the lumen of the gallbladder. Bile ducts: Normal. Common Bile Duct measures 1 mm. Free fluid: None. Additional Findings: None. IMPRESSION: 1. There is cholelithiasis. There is sludge in the lumen of the gallbladder. Signer Name: Frankie Pruett MD Signed: 09/12/2019 3:01 AM Workstation Name: [id number]
[2019-09-12 03:18] LABS: Bacteria,Urine 1+ /HPF (Negative); Bilirubin,Urine NEG (Negative); Blood,Urine SM (Negative); Color,Urine Yellow (Yellow); Mucus,Urine FEW /HPF; Protein,Urine <15 mg/dL mg/dL (Negative)
[2019-09-12] MEDS ORDERED: cefTRIAXone/NS 1 GM/50 ML 1 GM/50 ML BAG IV ONE (04:04)
[2019-09-12] MEDS ORDERED: KETOROLAC 30 MG/1 ML INJ IV ONE (04:04)
== END 2019-09-12 04:58 | disposition home or self-care (01) ==
LOC: ED 00:19
DX: N12 Tubulo-interstitial nephritis, not specified as acute or chronic (principal); K80.20 Calculus of gallbladder without cholecystitis without obstruction; E11.9 Type 2 diabetes mellitus without complications; F17.200 Nicotine dependence, unspecified, uncomplicated; Z79.899 Other long term (current) drug therapy
CPT/HCPCS: 36415; 76705; 80053; 81001; 83690; 84703; 85025; 87076; 87086; 87186; 96365; 96375; 99284; J0696; J1885; J2270; J2405

== ENCOUNTER 2020-06-23 04:41 | Observation (INO) | payer MEDICAID ==
[2020-06-23] MEDS ORDERED: SODIUM CHLORIDE 0.9% 1000 ML 1,000 ML IV ONE (04:58)
--- NOTE | 2020-06-23 05:02 | Emergency Department Report ---
HPI - General Time Seen by Provider: 06/23/20 04:50 - HPI HPI: This is a 24-year-old female presents to the emergency department as a transfer from [facility] for evaluation of a fluid collection within the gallbladder fossa for possible postcholecystectomy abscess. The patient had a cholecystectomy done about 2 weeks ago at [facility] by Dr. Pham. The patient says that she went into [facility] because she had concern for infection at the site of the cholecystectomy. She says that her stitches "ripped open" and she has been having some discomfort and drainage from that area. She denies any fever but has been having some chills and hot f lashes. At [facility] the patient had a CT scan of the abdomen pelvis that shows a 3.2 x 3 cm air-fluid collection in the gallbladder fossa and it is unclear whether this reflects postoperative fluid collection or simply an exophytic air-filled duodenal diverticulum. I did speak with Dr. Pham upon this patient's arrival to our emergency department. He would like the patient admitted to the hospitalist service and feels that the patient needs an IR drainage of the gallbladder fossa. ED Past Medical Hx - Past Medical History Hx Hypertension: No Hx Congestive Heart Failure: No Hx Diabetes: Yes (gestational only) Hx Deep Vein Thrombosis: No Hx Renal Disease: No Hx Sickle Cell Disease: No Hx Seizures: No Hx Asthma: No Hx COPD: No Hx HIV: No - Social History Smoking Status: Current Every Day Smoker Substance Use Type: None - Medications Home Medications: Home Medications Medication Instructions Recorded Confirmed Last Taken Type Vit,Calc76/Iron/Folic 1 each PO DAILY 08/15/18 08/15/18 1 Week Ago History [Pnv 29-1 Tablet] ~08/08/18 Ibuprofen [Motrin 800 MG tab] 800 mg PO TID PRN #30 tablet 08/18/18 Unknown Rx Lidocain2.5%/Prilocai2.5% [Emla] 5 gm TP PRN #1 tube 08/18/18 Unknown Rx Benzonatate [Tessalon Perles] 100 mg PO Q8HR PRN #20 capsule 04/10/19 Unknown Rx Ketorolac [Toradol] 10 mg PO Q6H PRN #15 tablet 04/10/19 Unknown Rx Acetaminophen/Codeine [Tylenol 1 tab PO Q8H PRN #8 tab 09/12/19 Unknown Rx /Codeine # 3 tab] Ciprofloxacin HCl [Ciprofloxacin 500 mg PO Q12HR 7 Days #14 tab 09/12/19 Unknown Rx TAB] ED Review of Systems ROS: Stated complaint: ABD PAIN Other details as noted in HPI Comment: All other systems reviewed and negative Constitutional: chills. denies: malaise Eyes: denies: eye pain, vision change ENT: denies: ear pain, throat pain Respiratory: denies: cough, shortness of breath Cardiovascular: denies: chest pain, palpitations Gastrointestinal: abdominal pain. denies: vomiting Genitourinary: denies: dysuria, discharge Musculoskeletal: denies: back pain, arthralgia Skin: other (Infected wound). denies: rash Neurological: denies: headache, weakness Physical Exam - Physical Exam Physical Exam: GENERAL: The patient is well-developed well-nourished. HENT: Normocephalic. Atraumatic. Patient has moist mucous membranes. EYES: Extraocular motions are intact. NECK: Supple. Trachea is midline. CHEST/LUNGS: Clear to auscultation. There is no respiratory distress noted. HEART/CARDIOVASCULAR: Regular. There is no tachycardia. ABDOMEN: Abdomen is soft. Mild right middle to lower quadrant abdominal tenderness to palpation. Patient has normal bowel sounds. There is no abdominal distention. SKIN: Skin is warm and dry. There is a small 3 cm wound to the right middle to lower abdomen most likely from a previous laparoscopy port. No surrounding erythema. No current bleeding or purulent discharge seen. NEURO: The patient is awake, alert, and oriented. The patient is cooperative. Normal speech. MUSCULOSKELETAL: There is no tenderness or deformity. There is no limitation range of motion. ED Course - Consultations Consultation #1: 06/23/20 05:[address] Pham, the general surgeon who had done the previous cholecystectomy and whom was previously contacted by the ER physicians at [facility]. He reaffirmed that the patient should be admitted to the hospitalist service and that the patient needs IR drainage of the gallbladder fossa. ED Medical Decision Making - Lab Data Result diagrams: 06/23/20 05:18 - Medical Decision Making This patient presents with concern for a post cholecystectomy abscess. The CT showed an air-fluid level of about 3.5 cm at the greatest diameter. Patient's labs from [facility] did not appear significant. CBC was repeated here and there is no leukocytosis. Vital signs reassuring including being afebrile. The patient had received Zosyn at [facility] and after talking with the hospitalist I believe vancomycin will also be started. General surgery was contacted and consulted. The patient will be admitted to the hospital for further evaluation and treatment and has been accepted for admission by Dr. Hi. Critical Care Time: No Critical care attestation.: If time is entered above; I have spent that time in minutes in the direct care of this critically ill patient, excluding procedure time. ED Disposition Clinical Impression: Postoperative abscess Abdominal pain Qualifiers: Abdominal location: unspecified location Qualified Code(s): R10.9 - Unspecified abdominal pain Disposition: OP ADMIT IP TO THIS HOSP Is pt being admited?: Yes Condition: Fair Referrals: PRIMARY CARE, [Primary Care Provider] - 3-5 Days Time of Disposition: 05:23
[2020-06-23 05:35] LABS: Basophils % (Auto) 0.5 % (0.0-1.8); Eosinophils # (Auto) 0.2 K/mm3 (0.0-0.4); Eosinophils % (Auto) 2.3 % (0.0-4.3); Hematocrit 36.8 % (30.3-42.9); Lymphocytes % (Auto) 42.8 % (13.4-35.0); Mean Corpuscular HGB Conc 33 % (30-34); Mean Corpuscular Volume 89 fl (79-97); Monocytes # (Auto) 0.3 K/mm3 (0.0-0.8); Monocytes % (Auto) 4.6 % (0.0-7.3); Platelet Count 235 K/mm3 (140-440); Red Blood Count 4.15 M/mm3 (3.65-5.03); Red Cell Distribution Width 15.3 % (13.2-15.2)
[2020-06-23 06:02] LABS: Alanine Aminotransferase 15 units/L (7-56); Albumin 4.1 g/dL (3.9-5); Blood Urea Nitrogen 15 mg/dL (7-17); Calcium 8.7 mg/dL (8.4-10.2); Hemolysis Index 4
[2020-06-23 06:03] LABS: BUN/Creatinine Ratio 21
[2020-06-23] MEDS ORDERED: ACETAMINOPHEN 325 MG TAB PO PRN (06:36)
[2020-06-23] MEDS ORDERED: ONDANSETRON 4 MG/2 ML INJ IV PRN (06:36)
--- NOTE | 2020-06-23 06:43 | History and Physical Report ---
History of Present Illness Date of examination: 06/23/20 Date of admission: 06/23/20 05:23 Chief complaint: Abdominal wound- s/p cholecystectomy History of present illness: 24-year-old white female was transferred to the emergency room today from an outside [facility] in [place] for evaluation of fluid collection within the gallbladder fossa for possible post cholecystectomy abscess. Patient has been having some chills but denies any fever, no chest pain or s hortness of breath, no nausea or vomiting and no diarrhea. She had cholecystectomy done about 2 weeks ago at [facility] by Dr. Whatley. Patient indicates that stitches broke open 2 to 3 days ago and has been having discomfort and drainage from the surgical site. Upon evaluation at [facility] CT scan of the abdomen and pelvis shows a 3.2 x 3 cm air-fluid collection in the gallbladder fossa. Dr. Pham has been consulted by the ER physician and recommendation is to have patient admitted for further evaluation and possible drainage of the gallbladder fossa by interventional radiology. Patient has been commenced on empiric IV antibiotics for possible abscess collection in the surgical site Past History Past Medical History: No medical history, diabetes (gestational) Past Surgical History: cholecystectomy Social history: smoking (Current daily smoker) Family history: no significant family history Medications and Allergies Allergies Allergy/AdvReac Type Severity Reaction Status Date / Time No Known Allergies Allergy Verified 04/10/19 04:13 Home Medications Medication Instructions Recorded Confirmed Last Taken Type Vit,Calc76/Iron/Folic 1 each PO DAILY 08/15/18 08/15/18 1 Week Ago History [Pnv 29-1 Tablet] ~08/08/18 Ibuprofen [Motrin 800 MG tab] 800 mg PO TID PRN #30 tablet 08/18/18 Unknown Rx Lidocain2.5%/Prilocai2.5% [Emla] 5 gm TP PRN #1 tube 08/18/18 Unknown Rx Benzonatate [Tessalon Perles] 100 mg PO Q8HR PRN #20 capsule 04/10/19 Unknown Rx Ketorolac [Toradol] 10 mg PO Q6H PRN #15 tablet 04/10/19 Unknown Rx Acetaminophen/Codeine [Tylenol 1 tab PO Q8H PRN #8 tab 09/12/19 Unknown Rx /Codeine # 3 tab] Ciprofloxacin HCl [Ciprofloxacin 500 mg PO Q12HR 7 Days #14 tab 09/12/19 Unknown Rx TAB] Active Meds: Active Medications Acetaminophen (Tylenol) 650 mg PO Q4H PRN PRN Reason: Pain MILD(1-3)/Fever >100.5/FINN Sodium Chloride (Nacl 0.9% 1000 Ml) 1,000 mls @ 125 mls/hr IV ONCE ONE Stop: 06/23/20 12:57 Last Admin: 06/23/20 05:47 Dose: 125 mls/hr Documented by: Sodium Chloride (Nacl 0.9% 1000 Ml) 1,000 mls @ 125 mls/hr IV DIRECT FLAQUITA Piperacillin Sod/Tazobactam Sod (Zosyn/Ns 4.5gm/100ml) 4.5 gm in 100 mls @ 200 mls/hr IV Q8HR FLAQUITA; Protocol Morphine Sulfate (Morphine) 2 mg IV Q4H PRN PRN Reason: Pain, Moderate (4-6) Ondansetron HCl (Zofran) 4 mg IV Q8H PRN PRN Reason: Nausea And Vomiting Sodium Chloride (Sodium Chloride Flush Syringe 10 Ml) 10 ml IV BID FLAQUITA Sodium Chloride (Sodium Chloride Flush Syringe 10 Ml) 10 ml IV PRN PRN PRN Reason: LINE FLUSH Review of Systems Constitutional: chills, no fever Cardiovascular: no chest pain, no palpitations Respiratory: no cough, no shortness of breath Gastrointestinal: abdominal pain, no nausea, no vomiting, no diarrhea Genitourinary Female: no pelvic pain, no flank pain, no dysuria, no hematuria Musculoskeletal: low back pain, no neck pain Integumentary: no rash, no pruritis Neurological: no headaches, no confusion Psychiatric: no anxiety, no depression Exam - Constitutional Vitals: Temp Pulse Resp BP Pulse Ox 97.7 F 81 18 118/69 100 06/23/20 04:59 06/23/20 04:59 06/23/20 04:59 06/23/20 04:59 06/23/20 04:59 General appearance: Present: no acute distress, well-nourished - EENT Eyes: Present: PERRL, EOM intact. Absent: scleral icterus ENT: hearing intact, clear oral mucosa, dentition normal - Neck Neck: Present: supple, normal ROM - Respiratory Respiratory effort: normal Respiratory: bilateral: CTA - Cardiovascular Rhythm: regular Heart Sounds: Present: S1 & S2. Absent: gallop, systolic murmur, diastolic murmur, rub - Extremities Extremities: no ischemia, pulses intact, No edema, Full ROM Peripheral Pulses: within normal limits - Abdominal General gastrointestinal: Present: soft, tender (Mild tenderness in right upper quadrant), non-distended, normal bowel sounds, other (Open wound in right upper quadrant with minimal clear draiange). Absent: mass - Integumentary Integumentary: Present: clear, warm, dry - Musculoskeletal Musculoskeletal: strength equal bilaterally - Psychiatric Psychiatric: appropriate mood/affect, intact judgment & insight, memory intact, cooperative - Neurologic Neurologic: CNII-XII intact, no focal deficits, moves all extremities Results - Labs CBC & Chem 7: 06/23/20 05:18 06/23/20 05:18 Labs: Abnormal lab results 06/23/20 Range/Units 05:18 RDW 15.3 H (13.2-15.2) % Lymph % (Auto) 42.8 H (13.4-35.0) % Assessment and Plan - Patient Problems (1) Abdominal pain Current Visit: Yes Status: Acute Qualifiers: Abdominal location: unspecified location Qualified Code(s): R10.9 - Unspecified abdominal pain Plan to address problem: Patient is status post cholecystectomy about 2 weeks ago. Pain is probably secondary to open wound at the surgical site. Will place on IV analgesic medication. (2) Postoperative abscess Current Visit: Yes Status: Acute Plan to address problem: Patient has been placed on empiric IV antibiotics. We will await further evaluation and recommendation from general surgery. (3) DVT prophylaxis Current Visit: Yes Status: Acute Plan to address problem: Patient placed on sequential compression device. (4) Full code status Current Visit: Yes Status: Acute
[2020-06-23] MEDS ORDERED: VANCOMYCIN PHARMACY TO DOSE IV SCH (07:00)
[2020-06-23] MEDS ORDERED: PIPERACIL/TAZOBACTA 4.5/NS 100 4.5 GM/100 ML VIAL IV ONE (07:51)
[2020-06-23] MEDS: PIPERACIL/TAZOBACTA 4.5/NS 100 4.5 GM/100 ML VIAL IV SCH ×4 (07:59→21:54)
[2020-06-23] MEDS ORDERED: VANCOMYCIN 1,500 MG in SODIUM CHLORIDE 0.9% 500 ML 500 ML IV ONE (08:00)
[2020-06-23] MEDS ORDERED: MORPHINE 2 MG/1 ML INJ ONE ×3 (10:18→17:45)
[2020-06-23] MEDS: MORPHINE 2 MG/1 ML INJ IV PRN ×3 (10:22→22:32)
[2020-06-23] MEDS ORDERED: PIPERACIL/TAZOBACTA 4.5/NS 100 4.5 GM/100 ML VIAL IV SCH (14:00)
--- NOTE | 2020-06-23 16:42 | Event Note ---
Date: 06/23/20 24-year-old female patient who recently underwent cholecystectomy This is a 24-year-old female presents to the emergency department as a transfer from [facility] for evaluation of a fluid collection within the gallbladder fossa for possible postcholecystectomy abscess. The patient had a cholecystectomy done about 2 weeks ago at [facility] by Dr. Pham. The patient went into [facility] with abdominal pain and patient was concerned for infection at the site of the cholecystectomy. Patient reports some discomfort and drainage from that area. CT scan of the abdomen pelvis that shows a 3.2 x 3 cm air-fluid collection in the gallbladder fossa and it is unclear whether this reflects postoperative fluid collection or simply an exophytic air-filled duodenal diverticulum. Patient contacted the surgeon Dr. Pham who recommended her to be transferred to [facility]. Currently patient is sleeping easily awakens, complains of mild abdominal pain and nausea.. Awaiting surgery evaluation and recommendations. Continue n.p.o. IV antibiotics ,antiemetics, IV fluids and pain medications Pending surgery evaluation
[2020-06-23] MEDS: VANCOMYCIN 1,250 MG in SODIUM CHLORIDE 0.9% 250ML 250 ML IV SCH (21:54)
[2020-06-23] MEDS: SODIUM CHLORIDE 0.9% 1000 ML 1,000 ML IV SCH (22:05)
[2020-06-24] MEDS: PIPERACIL/TAZOBACTA 4.5/NS 100 4.5 GM/100 ML VIAL IV SCH ×3 (05:23→23:38)
[2020-06-24 08:20] LABS: Basophils % (Auto) 0.4 % (0.0-1.8); Eosinophils # (Auto) 0.2 K/mm3 (0.0-0.4); Eosinophils % (Auto) 3.1 % (0.0-4.3); Hemoglobin 11.1 gm/dl (10.1-14.3); Lymphocytes % (Auto) 47.4 % (13.4-35.0); Mean Corpuscular HGB Conc 33 % (30-34); Mean Corpuscular Volume 89 fl (79-97); Monocytes # (Auto) 0.3 K/mm3 (0.0-0.8); Monocytes % (Auto) 5.5 % (0.0-7.3); Platelet Count 225 K/mm3 (140-440); Red Blood Count 3.82 M/mm3 (3.65-5.03); Red Cell Distribution Width 15.5 % (13.2-15.2)
[2020-06-24 08:23] LABS: Blood Urea Nitrogen 8 mg/dL (7-17); Hemolysis Index 15; INR 1.07 (0.87-1.13)
[2020-06-24 08:27] LABS: BUN/Creatinine Ratio 13
[2020-06-24] MEDS: SODIUM CHLORIDE 0.9% 1000 ML 1,000 ML IV SCH (15:03)
[2020-06-24] MEDS: MORPHINE 2 MG/1 ML INJ IV PRN (16:03)
--- NOTE | 2020-06-24 16:43 | Progress Note ---
Assessment and Plan Assessment and plan: --Abdominal pain; patient had a cholecystectomy done about 2 weeks ago at [facility] by Dr. Pham. As per ER note CT scan of the abdomen pelvis[done at a different hospital] shows a 3.2 x 3 cm air-fluid collection in the gallbladder fossa and it is unclear whether this reflects postoperative fluid collection or simply an exophytic air-filled duodenal diverticulum. Start clear liquids, IV fluids, ER physician discussed and consulted Dr. Sami Vega --Possible postop abscess; IV antibiotics, cultures, supportive care --DVT prophylaxis; SCDs We will closely monitor the patient and adjust the management as needed Plan of care reviewed with patient and her nurse Pending surgery evaluation I called Dr. Pham[surgeon] and discussed about the patient He recommended CT abdomen with IV contrast, to continue IV fluids Start diet as tolerated and he would consult on the patient. History Interval history: I have seen and examined the patient at the bedside today Patient's chart and medications reviewed Patient feels better no nausea vomiting Mild right upper quadrant pain Afebrile, vital signs reviewed Hospitalist Physical - Constitutional Vitals: Temp Pulse Resp BP Pulse Ox 97.9 F 78 16 110/56 98 06/24/20 15:00 06/24/20 15:00 06/24/20 15:00 06/24/20 15:00 06/24/20 15:00 General appearance: Present: no acute distress, well-nourished - EENT Eyes: Present: PERRL, EOM intact - Neck Neck: Present: supple, normal ROM - Respiratory Respiratory effort: normal Respiratory: bilateral: diminished, negative: rales, rhonchi, wheezing - Cardiovascular Rhythm: regular Heart Sounds: Present: S1 & S2 - Extremities Extremities: no ischemia, No edema - Abdominal General gastrointestinal: soft, tender (Mild tenderness right upper quadrant, no guarding no rigidity), non-distended, normal bowel sounds - Integumentary Integumentary: Present: clear, warm - Psychiatric Psychiatric: appropriate mood/affect, cooperative - Neurologic Neurologic: CNII-XII intact, moves all extremities Results - Labs CBC & Chem 7: 06/24/20 07:52 06/24/20 07:52 Labs: Laboratory Last Values WBC 6.4 K/mm3 (4.5-11.0) 06/24/20 07:52 RBC 3.82 M/mm3 (3.65-5.03) 06/24/20 07:52 Hgb 11.1 gm/dl (10.1-14.3) 06/24/20 07:52 Hct 34.0 % (30.3-42.9) 06/24/20 07:52 MCV 89 fl (79-97) 06/24/20 07:52 MCH 29 pg (28-32) 06/24/20 07:52 MCHC 33 % (30-34) 06/24/20 07:52 RDW 15.5 % (13.2-15.2) H 06/24/20 07:52 Plt Count 225 K/mm3 (140-440) 06/24/20 07:52 Lymph % (Auto) 47.4 % (13.4-35.0) H 06/24/20 07:52 Schuyler % (Auto) 5.5 % (0.0-7.3) 06/24/20 07:52 Eos % (Auto) 3.1 % (0.0-4.3) 06/24/20 07:52 Baso % (Auto) 0.4 % (0.0-1.8) 06/24/20 07:52 Lymph # (Auto) 3.0 K/mm3 (1.2-5.4) 06/24/20 07:52 Schuyler # (Auto) 0.3 K/mm3 (0.0-0.8) 06/24/20 07:52 Eos # (Auto) 0.2 K/mm3 (0.0-0.4) 06/24/20 07:52 Baso # (Auto) 0.0 K/mm3 (0.0-0.1) 06/24/20 07:52 Seg Neutrophils % 43.6 % (40.0-70.0) 06/24/20 07:52 Seg Neutrophils # 2.8 K/mm3 (1.8-7.7) 06/24/20 07:52 PT 14.1 Sec. (12.2-14.9) 06/24/20 07:52 INR 1.07 (0.87-1.13) 06/24/20 07:52 Sodium 141 mmol/L (137-145) 06/24/20 07:52 Potassium 3.9 mmol/L (3.6-5.0) 06/24/20 07:52 Chloride 109.4 mmol/L (98-107) H 06/24/20 07:52 Carbon Dioxide 26 mmol/L (22-30) 06/24/20 07:52 Anion Gap 10 mmol/L 06/24/20 07:52 BUN 8 mg/dL (7-17) 06/24/20 07:52 Creatinine 0.6 mg/dL (0.6-1.2) 06/24/20 07:52 Estimated GFR > 60 ml/min 06/24/20 07:52 BUN/Creatinine Ratio 13 % 06/24/20 07:52 Glucose 80 mg/dL (65-100) 06/24/20 07:52 Lactic Acid 0.80 mmol/L (0.7-2.0) 06/23/20 05:18 Calcium 8.0 mg/dL (8.4-10.2) L 06/24/20 07:52 Total Bilirubin 0.30 mg/dL (0.1-1.2) 06/23/20 05:18 AST 15 units/L (5-40) 06/23/20 05:18 ALT 15 units/L (7-56) 06/23/20 05:18 Alkaline Phosphatase 77 units/L (35-129) 06/23/20 05:18 Total Protein 7.1 g/dL (6.3-8.2) 06/23/20 05:18 Albumin 4.1 g/dL (3.9-5) 06/23/20 05:18 Albumin/Globulin Ratio 1.4 % 06/23/20 05:18 Microbiology: Microbiology 06/23/20 05:12 Peripheral/Venous Blood Culture - Preliminary NO GROWTH AFTER 24 HOURS 06/23/20 05:18 Peripheral/Venous Blood Culture - Preliminary NO GROWTH AFTER 24 HOURS Keller/IV: Voiding Method Toilet IV Catheter Type [Left Hand] INT / Saline Lock Active Medications - Current Medications Current Medications: Generic Name Dose Route Start Last Admin Trade Name Freq PRN Reason Stop Dose Admin Acetaminophen 650 mg 06/23/20 06:36 Tylenol PO Q4H PRN Pain MILD(1-3)/Fever >100.5/FINN Sodium Chloride 1,000 mls @ 125 mls/hr 06/23/20 06:45 06/24/20 15:03 Nacl 0.9% 1000 Ml IV 125 mls/hr DIRECT FLAQUITA Administration Piperacillin Sod/Tazobactam Sod 4.5 gm in 100 mls @ 200 mls/hr 06/23/20 07:30 06/24/20 14:59 Zosyn/Ns 4.5gm/100ml IV 200 mls/hr Q8HR FLAQUITA Administration Protocol Vancomycin HCl 1,250 mg/ 275 mls @ 166.667 mls/hr 06/23/20 20:00 06/23/20 21:54 Sodium Chloride IV 166.667 mls/hr Q12HR@0800,2000 FLAQUITA Administration Morphine Sulfate 2 mg 06/23/20 06:36 06/24/20 16:03 Morphine IV 2 mg Q4H PRN Administration Pain, Moderate (4-6) Ondansetron HCl 4 mg 06/23/20 06:36 Zofran IV Q8H PRN Nausea And Vomiting Sodium Chloride 10 ml 06/23/20 10:00 06/24/20 15:00 Sodium Chloride Flush Syringe 10 Ml IV 10 ml BID FLAQUITA Administration Sodium Chloride 10 ml 06/23/20 06:36 Sodium Chloride Flush Syringe 10 Ml IV PRN PRN LINE FLUSH
[2020-06-24] MEDS: VANCOMYCIN 1,250 MG in SODIUM CHLORIDE 0.9% 250ML 250 ML IV SCH (20:16)
--- NOTE | 2020-06-24 22:48 | Cat Scan Report ---
CT abdomen pelvis w con INDICATION / CLINICAL INFORMATION: Post cholecystectomy abscess/fluid collection. TECHNIQUE: Axial CT imaging of abdomen and pelvis was obtained with IV contrast. Coronal and sagittal reformatte d imaging obtained and reviewed. All CT scans at this location are performed using CT dose reduction for ALARA by means of automated exposure control. COMPARISON: None available. FINDINGS: CT abdomen with contrast demonstrates normal appearance of the liver, spleen, pancreas, kidneys, and adrenal glands. Surgical clips are present in the cholecystectomy bed. There is a tiny amount of flui d in the cholecystectomy bed, but no evidence for abscess or abnormal fluid collection. There is very mild intrahepatic biliary dilatation. CT pelvis with contrast does not demonstrate a mass, free fluid, or focal inflammatory change. A norm al appendix is present. GI tract demonstrates fluid-filled loops of nondilated small bowel throughout the abdomen and pelvis. In the appropriate clinical setting, this could represent mild enteritis. Colon is unremarkable., In the subcutaneous fat at the level of the umbilicus, there is enhancing mass measuring approximately 2 cm. No visible fluid is noted. However there is prominent inflammatory change in the surrounding ramsey bcutaneous fat. This could represent focal cellulitis or possibly developing abscess. Visualized lung bases do not show acute pulmonary or pleural disease. No significant acute osseous ab normality is noted. IMPRESSION: 1. Small amount of fluid is present in the cholecystectomy bed which can be a normal postoperative fi nding. I do not see evidence for intra-abdominal abscess or bile leak. 2. Inflammatory changes are seen in the subcutaneous fat of the abdominal wall at the level of the um bilicus with possible 2 cm soft tissue mass. This could represent focal infection. Please correlate w ith clinical exam and patient's area of pain. 3. Fluid-filled loops of nondilated small bowel are present. This could represent mild enteritis in t he appropriate clinical setting. Signer Name: Dariana Cheung MD Signed: 06/24/2020 10:43 PM Workstation Name: [employer]
[2020-06-25] MEDS: PIPERACIL/TAZOBACTA 4.5/NS 100 4.5 GM/100 ML VIAL IV SCH (06:49)
[2020-06-25] MEDS: VANCOMYCIN 1,250 MG in SODIUM CHLORIDE 0.9% 250ML 250 ML IV SCH (11:28)
[2020-06-25] MEDS: MORPHINE 2 MG/1 ML INJ IV PRN (11:46)
[2020-06-25 11:49] VITALS: BP 123/81
--- NOTE | 2020-06-25 13:35 | Discharge Summary ---
Providers - Providers Date of Admission: 06/23/20 05:23 Date of discharge: 06/25/20 Attending physician: ELVIN GOFF 06/23/20 04:57 Consult to Physician [CONS] Routine Comment: Consulting Provider: PAUL EVANS Physician Instructions: Reason For Exam: post-cholecystectomy abscess Primary care physician: STRAW BALER Hospitalization Reason for admission: Abdominal wound- s/p cholecystectomy 2 weeks ago Condition: Fair Pertinent studies: CT abdomen and pelvis; small amount of fluid at the cholecystectomy bed, expected Inflammatory changes in the abdominal wall near the incision, and received antibiotics in the hospital Afebrile no leukocytosis cultures negative Hospital course: 24-year-old white female was transferred to the emergency room today from an outside Medical Center in [place] for evaluation of fluid collection within the gallbladder fossa for possible post cholecystectomy abscess. Patient had cholecystectomy [address] Evans' who recommended the patient to be admitted at [facility] under hospitalist service and that he would consult. Patient was admitted managed with antibiotics and supportive care , underwent CT abdomen, which did not show any evidence of abscess Or fluid collection the bed of cholecystectomy area probably expected change, patient was already receiving antibiotics Patient was afebrile, normal white count and negative cultures. Patient is hemodynamically and clinically stable, tolerating regular diet Dr. Evans talk to patient's nurse and cleared for discharge and follow-up as outpatient. Discussed the discharge plan with the patient, and advised to follow with primary care physician and surgeon per schedule Patient is stable at discharge Discharge diagnosis; --History of lap cholecystectomy/hernia repair --Mild serous discharge from the wound site/surgeon said supportive care --Received antibiotics during the hospital stay --Patient afebrile normal WBC count and cultures negative Patient is hemodynamically and clinically stable at discharge Surgery cleared for discharge and follow-up outpatient Patient stable at discharge Nurse reports that she did not wait for discharge papers And left the hospital Disposition: DC-01 TO HOME OR SELFCARE Time spent for discharge: 32 min Core Measure Documentation - Palliative Care Palliative Care/ Comfort Measures: Not Applicable - Core Measures Any of the following diagnoses?: none Exam - Constitutional Vitals: Temp Pulse Resp BP Pulse Ox 98.6 F 67 18 123/81 100 06/25/20 11:34 06/25/20 11:34 06/25/20 11:34 06/25/20 11:34 11/12/20 11:34 General appearance: Present: no acute distress, well-nourished - EENT Eyes: Present: PERRL, EOM intact - Neck Neck: Present: supple, normal ROM - Respiratory Respiratory effort: normal Respiratory: bilateral: diminished, negative: rales, rhonchi, wheezing - Cardiovascular Rhythm: regular Heart Sounds: Present: S1 & S2 - Extremities Extremities: no ischemia, No edema - Abdominal General gastrointestinal: Present: soft, non-tender, non-distended, normal bowel sounds - Integumentary Integumentary: Present: clear, warm - Musculoskeletal Musculoskeletal: strength equal bilaterally - Psychiatric Psychiatric: appropriate mood/affect, cooperative - Neurologic Neurologic: moves all extremities Plan Activity: no restrictions Diet: regular Additional Instructions: Regular diet as tolerated. Advised to see Dr. Evans in 2 to 3 weeks if needed. If you have worsening symptoms contact MD Follow up with: PRIMARY MD TIERA [Primary Care Provider] - 3-5 Days PAUL EVANS MD [Staff Physician] - 14 Days
--- NOTE | 2020-06-25 14:58 | Consultation ---
History of Present Illness Consult date: 06/25/20 Reason for consult: abdominal pain Chief complaint: 24 yo WF well-known to me s/p LC and umbilical hernia repair approx 2 weeks ago. Pt also had prolonged post-op ileus due to overuse of narcotics post-op and stayed in hospital approx 2-3 days longer then expected. Pt also had histrionic pain complaints after such a small surgery. 2 nights ago she was in [facility] urgent care (unclear why she didn't return to my hospital and I tired to get pt admitted to [facility] but ER was on diversion. CT reading d/w ER MD and it was felt that pt could be put on empiric abx and f/u closely in clinic. I was unable to reach pt by phone in computer and pt never called for close f/u appt in clinic. Pt now presented to [facility] ER and had CT done which I rev'd with myrna Segura. He feels that: 1. no abscess in GB fossa-- not worth risk fo aspiration procedure to further investigate and abx would likely be effective tx anyway; 2. no evid wound infection by CT; 3. enteritis is not very impressive and may just be small bowel contraction. Past History Past Medical History: No medical history, diabetes (gestational) Past Surgical History: cholecystectomy Social history: smoking (Current daily smoker) Family history: no significant family history Medications and Allergies Allergies Allergy/AdvReac Type Severity Reaction Status Date / Time No Known Allergies Allergy Verified 04/10/19 04:13 Home Medications Medication Instructions Recorded Confirmed Last Taken Type Vit,Calc76/Iron/Folic 1 each PO DAILY 08/15/18 06/24/20 1 Week Ago History [Pnv 29-1 Tablet] ~08/08/18 Lidocain2.5%/Prilocai2.5% [Emla] 5 gm TP PRN #1 tube 08/18/18 06/24/20 Unknown Rx Benzonatate [Tessalon Perles] 100 mg PO Q8HR PRN #20 capsule 04/10/19 06/24/20 Unknown Rx Ketorolac [Toradol] 10 mg PO Q6H PRN #15 tablet 04/10/19 06/24/20 Unknown Rx Acetaminophen/Codeine [Tylenol 1 tab PO Q8H PRN #8 tab 09/12/19 06/24/20 Unknown Rx /Codeine # 3 tab] Active Meds: Active Medications Acetaminophen (Tylenol) 650 mg PO Q4H PRN PRN Reason: Pain MILD(1-3)/Fever >100.5/FINN Sodium Chloride (Nacl 0.9% 1000 Ml) 1,000 mls @ 125 mls/hr IV DIRECT [facility] Last Admin: 06/24/20 15:03 Dose: 125 mls/hr Documented by: Piperacillin Sod/Tazobactam Sod (Zosyn/Ns 4.5gm/100ml) 4.5 gm in 100 mls @ 200 mls/hr IV Q8HR [facility]; Protocol Last Admin: 06/25/20 06:49 Dose: 200 mls/hr Documented by: Vancomycin HCl 1,250 mg/ (Sodium Chloride) 275 mls @ 166.667 mls/hr IV Q12HR@0800,2000 [facility] Last Admin: 06/25/20 11:28 Dose: 166.667 mls/hr Documented by: Morphine Sulfate (Morphine) 2 mg IV Q4H PRN PRN Reason: Pain, Moderate (4-6) Last Admin: 06/25/20 11:46 Dose: 2 mg Documented by: Ondansetron HCl (Zofran) 4 mg IV Q8H PRN PRN Reason: Nausea And Vomiting Sodium Chloride (Sodium Chloride Flush Syringe 10 Ml) 10 ml IV BID [facility] Last Admin: 06/25/20 11:47 Dose: 10 ml Documented by: Sodium Chloride (Sodium Chloride Flush Syringe 10 Ml) 10 ml IV PRN PRN PRN Reason: LINE FLUSH Exam Vital Signs Pulse Ox 100 06/23/20 04:54 - Abdomen Abdomen: Present: other (picture of pt's wounds sent to me by RN at [facility] (with pt's permission)-- NO evid of wound infection; RN also agrees that there is no evid on PE that there is an infection at umbilical site) Results - Labs 06/24/20 07:52 06/24/20 07:52 Assessment and Plan 1. S/p LC and open UHR--- doing well overall; surgery was uneventful and low suspicion for any surgical complication (see below). Empiric abx tx for now with close outpt f/u in my clinic (pt has numbers/etc and has been noncompliant in past). 2. No evid wound infection. 3. Possible but unlikely enteritis-- consider empiric abx tx 4. Hx substance abuse/current homelessness by report-- I have a significant concern for ulterior motives for pt's complaints (narcotic admin/place to sty/etc) I have d/w case with myrna LAMAS and RN today and feel comfortable with plan for empiric abx tx and close f/u with me in clinic (if pt will show up). This was d/w Rn who will forward info to hospitalist who can d/c pt today as pt now demanding per RN.
--- NOTE | 2020-06-25 15:58 | Event Note ---
Date: 06/25/20 I have informed the patient that she is stable to be discharged and discharged the patient, advised the patient to follow-up with primary care physician and surgeon per schedule .The nurse reports to me that the patient did not wait for the discharge paperwork and left the hospital.
== END 2020-06-25 14:42 | disposition home or self-care (01) ==
LOC: ED 04:41 → 3A 05:23 → EEVIPCON 05:23 → 3A 15:01 → 3B-SURG 18:52
PROVIDERS: ADMIT Internal Medicine Geriatric Medicine; ATTEND Internal Medicine
DX: T81.49XA Infection following a procedure, other surgical site, initial encounter (principal); R10.9 Unspecified abdominal pain; L02.211 Cutaneous abscess of abdominal wall; F17.210 Nicotine dependence, cigarettes, uncomplicated; Z90.49 Acquired absence of other specified parts of digestive tract
CPT/HCPCS: 36415; 74177; 80048; 80053; 82140; 85025; 85610; 87040; 96361; 96365; 96366; 96368; 96375; 96376; 99284; 99406; G0378; J2270; J2543; J3370; J7030; J7040; J7050; Q9967

== ENCOUNTER 2020-07-18 21:54 | Emergency (ER) | payer MEDICAID ==
[2020-07-18 23:20] LABS: Basophils % (Auto) 0.4 % (0.0-1.8); Eosinophils # (Auto) 0.1 K/mm3 (0.0-0.4); Eosinophils % (Auto) 0.5 % (0.0-4.3); Hematocrit 40.1 % (30.3-42.9); Hemoglobin 13.2 gm/dl (10.1-14.3); Lymphocytes # (Auto) 3.7 K/mm3 (1.2-5.4); Lymphocytes % (Auto) 33.4 % (13.4-35.0); Mean Corpuscular HGB Conc 33 % (30-34); Mean Corpuscular Volume 87 fl (79-97); Monocytes # (Auto) 0.4 K/mm3 (0.0-0.8); Monocytes % (Auto) 3.7 % (0.0-7.3); Platelet Count 333 K/mm3 (140-440); Red Blood Count 4.59 M/mm3 (3.65-5.03); Red Cell Distribution Width 15.5 % (13.2-15.2)
[2020-07-18 23:47] LABS: Blood Urea Nitrogen 15 mg/dL (7-17); Calcium 10.2 mg/dL (8.4-10.2); Hemolysis Index 6
[2020-07-18 23:50] LABS: BUN/Creatinine Ratio 30
--- NOTE | 2020-07-19 00:21 | Emergency Department Report ---
ED Psych HPI - General Chief Complaint: Psych Stated Complaint: SUICIDAL IDEATIONS Time Seen by Provider: 07/18/20 22:10 Source: patient, EMS Mode of arrival: Ambulatory - History of Present Illness Initial Comments: Patient is a 24-year-old female with a past medical history of depression and suicidality is complaining of being actively suicidal. She states she is been off of her medications. She is hearing voices telling her to harm herself. Patient today took a knife and started cutting her wrists on the right. Patient states she cut herself and attempt to commit suicide. She denies homicidal ideations or visual hallucinations at this time. - Related Data Home Medications Medication Instructions Recorded Confirmed Last Taken Vit,Calc76/Iron/Folic 1 each PO DAILY 08/15/18 06/24/20 1 Week Ago [Pnv 29-1 Tablet] ~08/08/18 Previous Rx's Medication Instructions Recorded Last Taken Type Lidocain2.5%/Prilocai2.5% [Emla] 5 gm TP PRN #1 tube 08/18/18 Unknown Rx Benzonatate [Tessalon Perles] 100 mg PO Q8HR PRN #20 capsule 04/10/19 Unknown Rx Ketorolac [Toradol] 10 mg PO Q6H PRN #15 tablet 04/10/19 Unknown Rx Acetaminophen/Codeine [Tylenol 1 tab PO Q8H PRN #8 tab 09/12/19 Unknown Rx /Codeine # 3 tab] Allergies Allergy/AdvReac Type Severity Reaction Status Date / Time No Known Allergies Allergy Verified 04/10/19 04:13 ED Review of Systems ROS: Stated complaint: SUICIDAL IDEATIONS Other details as noted in HPI Comment: All other systems reviewed and negative ED Past Medical Hx - Past Medical History Previous Medical History?: Yes Hx Hypertension: No Hx Congestive Heart Failure: No Hx Diabetes: Yes (gestational only) Hx Deep Vein Thrombosis: No Hx Renal Disease: No Hx Sickle Cell Disease: No Hx Seizures: No Hx Psychiatric Treatment: Yes (depression, Multiple suicide attempts) Hx Asthma: No Hx COPD: No Hx HIV: No - Surgical History Past Surgical History?: Yes Hx Cholecystectomy: Yes - Social History Smoking Status: Current Every Day Smoker - Medications Home Medications: Home Medications Medication Instructions Recorded Confirmed Last Taken Type Vit,Calc76/Iron/Folic 1 each PO DAILY 08/15/18 06/24/20 1 Week Ago History [Pnv 29-1 Tablet] ~08/08/18 Lidocain2.5%/Prilocai2.5% [Emla] 5 gm TP PRN #1 tube 08/18/18 06/24/20 Unknown Rx Benzonatate [Tessalon Perles] 100 mg PO Q8HR PRN #20 capsule 04/10/19 06/24/20 Unknown Rx Ketorolac [Toradol] 10 mg PO Q6H PRN #15 tablet 04/10/19 06/24/20 Unknown Rx Acetaminophen/Codeine [Tylenol 1 tab PO Q8H PRN #8 tab 09/12/19 06/24/20 Unknown Rx /Codeine # 3 tab] ED Physical Exam - General Limitations: No Limitations General appearance: alert, in no apparent distress - Head Head exam: Present: atraumatic, normocephalic - Eye Eye exam: Present: normal appearance - ENT ENT exam: Present: mucous membranes moist - Neck Neck exam: Present: normal inspection - Respiratory Respiratory exam: Present: normal lung sounds bilaterally. Absent: respiratory distress, wheezes, rales, rhonchi - Cardiovascular Cardiovascular Exam: Present: regular rate, normal rhythm, normal heart sounds. Absent: systolic murmur, diastolic murmur, rubs, gallop - GI/Abdominal GI/Abdominal exam: Present: soft, normal bowel sounds. Absent: distended, tenderness, guarding, rebound - Extremities Exam Extremities exam: Present: normal inspection - Expanded Upper Extremity Exam Right Forearm Wrist exam: Present: other (Patient with 6 very superficial linear abrasions. One of the abrasions has a pinpoint area that has a small amount of active bleeding. None of these linear abrasions deep enough that they need suturing.) - Back Exam Back exam: Present: normal inspection - Neurological Exam Neurological exam: Present: alert, oriented X3 - Psychiatric Psychiatric exam: Present: normal affect, normal mood - Skin Skin exam: Present: warm, dry, intact, normal color. Absent: rash ED Course Vital Signs 07/18/20 07/18/20 07/19/20 22:32 23:00 02:59 Temperature 98.2 F 98.4 F Pulse Rate 90 88 Respiratory 16 20 18 Rate Blood Pressure 113/69 Blood Pressure 118/72 [Left] O2 Sat by Pulse 96 98 98 Oximetry - Reevaluation(s) Reevaluation #1: 07/19/20 00:20 Patient is medically cleared for psychiatric evaluation. Reevaluation #2: 07/20/20 00:53 Psychiatric Consult Note Patient Name: TASIA MEDELLIN Date of : [birth year] Patient Status: Emergency Emergency Provider: JUAN JOSÉ ALEJO Date: 07/19/20 10:08 Initialization Date: 07/19/20 10:08 History of Present Illness - Reason for Consult Consult date: 07/19/20 Reason for consult: SI - History of Present Psychiatric Illness Tasia Medellin is a 24y/o female who presented to the ER with being off meds, suicidal thoughts and self mutilating. During my interview with the patient she states she "feels a little better than yesterday." The patient states she's been off her meds "since before ." She says "I wasn't able to fill them." The patient verbalizes "suicidal thoughts that come in waves." She says "I literally had a breakdown last night. The suicidal thoughts were bad." She verbalizes using "meth." The patient says "If you can get me somewhere. I need help." She denies hallucinations. PAST PSYCHIATRIC HISTORY Diagnoses: Bipolar Suicide attempts or Self-harm behavior: "over 10" Prior psychiatric hospitalizations: Yes Substance Abuse history: meth Previous psychiatric medications tried: [place], seroquel, neurontin Outpatient treatment: yes PAST MEDICAL HISTORY: None reported Family Psychiatric History: None reported or documented SOCIAL HISTORY Marital Status: single Living Arrangements: homeless Employment Status: Unemployed Access to guns/weapons: Denies Education: high school graduate History of Abuse: Denies Legal History: None reported REVIEW OF SYSTEMS Constitutional: Negative for weight loss ENT: Negative for stridor Respiratory: Negative for cough or hemoptysis All other systems reviewed and are negative MENTAL STATUS EXAMINATION General Appearance and Behavior: Age appropriate, good hygiene, not wearing appropriate clothes, good eye contact, cooperative polite with questioning. Cooperation: Participating/engaged Psychomotor Behavior: Psychomotor normal Mood: "depressed" Affect and affective range: Congruent with stated mood Thought Process: goal directed Thought Content: None Speech: normal tone and pace Suicidal Ideation: Yes Homicidal Ideation: Denies HI Hallucinations: Denies Delusions: None elicited Impulse Control: Limited Insight and Judgment: Limited insight and judgment Memory: Normal Attention: Normal Orientation: Alert, oriented, Assessment and Plan Methamphetamine Use Disorder Bipolar Disorder, Current Episode Depressed Noncompliance with other medical treatment and regimen Treatment 1013 Restart home meds Start Seroquel 25mg po BID Start [place] 300mg po daily Start Trazodone 50mg po qhs Medical: Per primary Sitter: Defer to [facility] Disposition: Recommend acute inpatient treatment Will follow on Monday if not transferred. ED Medical Decision Making - Lab Data Result diagrams: 07/18/20 22:26 07/18/20 22:26 Lab Results 07/18/20 07/18/20 07/18/20 Range/Units 22:26 22: 22: WBC 11.0 (4.5-11.0) K/mm3 RBC 4.59 (3.65-5.03) M/mm3 Hgb 13.2 (10.1-14.3) gm/dl Hct 40.1 (30.3-42.9) % MCV 87 (79-97) fl MCH 29 (28-32) pg MCHC 33 (30-34) % RDW 15.5 H (13.2-15.2) % Plt Count 333 (140-440) K/mm3 Lymph % (Auto) 33.4 (13.4-35.0) % [place] % (Auto) 3.7 (0.0-7.3) % Eos % (Auto) 0.5 (0.0-4.3) % Baso % (Auto) 0.4 (0.0-1.8) % Lymph # (Auto) 3.7 (1.2-5.4) K/mm3 [place] # (Auto) 0.4 (0.0-0.8) K/mm3 Eos # (Auto) 0.1 (0.0-0.4) K/mm3 Baso # (Auto) 0.0 (0.0-0.1) K/mm3 Seg Neutrophils % 62.0 (40.0-70.0) % Seg Neutrophils # 6.8 (1.8-7.7) K/mm3 Sodium 140 (137-145) mmol/L Potassium 4.9 (3.6-5.0) mmol/L Chloride 103.8 (98-107) mmol/L Carbon Dioxide 24 (22-30) mmol/L Anion Gap 17 mmol/L BUN 15 (7-17) mg/dL Creatinine 0.5 L (0.6-1.2) mg/dL Estimated GFR > 60 ml/min BUN/Creatinine Ratio 30 % Glucose 122 H (65-100) mg/dL Calcium 10.2 (8.4-10.2) mg/dL HCG, Qual (Negative) Salicylates < 0.3 L (2.8-20.0) mg/dL Acetaminophen (10.0-30.0) ug/mL Plasma/Serum Alcohol (0-0.07) % 07/18/20 07/18/20 07/18/20 Range/Units 22:26 22:26 22:26 WBC (4.5-11.0) K/mm3 RBC (3.65-5.03) M/mm3 Hgb (10.1-14.3) gm/dl Hct (30.3-42.9) % MCV (79-97) fl MCH (28-32) pg MCHC (30-34) % RDW (13.2-15.2) % Plt Count (140-440) K/mm3 Lymph % (Auto) (13.4-35.0) % [place] % (Auto) (0.0-7.3) % Eos % (Auto) (0.0-4.3) % Baso % (Auto) (0.0-1.8) % Lymph # (Auto) (1.2-5.4) K/mm3 [place] # (Auto) (0.0-0.8) K/mm3 Eos # (Auto) (0.0-0.4) K/mm3 Baso # (Auto) (0.0-0.1) K/mm3 Seg Neutrophils % (40.0-70.0) % Seg Neutrophils # (1.8-7.7) K/mm3 Sodium (137-145) mmol/L Potassium (3.6-5.0) mmol/L Chloride (98-107) mmol/L Carbon Dioxide (22-30) mmol/L Anion Gap mmol/L BUN (7-17) mg/dL Creatinine (0.6-1.2) mg/dL Estimated GFR ml/min BUN/Creatinine Ratio % Glucose (65-100) mg/dL Calcium (8.4-10.2) mg/dL HCG, Qual Negative (Negative) Salicylates (2.8-20.0) mg/dL Acetaminophen 5.0 L (10.0-30.0) ug/mL Plasma/Serum Alcohol < 0.01 (0-0.07) % - Medical Decision Making pt transffered to facility Critical care attestation.: If time is entered above; I have spent that time in minutes in the direct care of this critically ill patient, excluding procedure time. ED Disposition Clinical Impression: Bipolar affective, depress, severe, Methamphetamine abuse Disposition: DC/TX-65 PSY HOSP/PSY UNIT Is pt being admited?: No Does the pt Need Aspirin: No Condition: Stable Referrals: PRIMARY CARE, [Primary Care Provider] - 3-5 Days
[2020-07-19 00:28] LABS: Amphetamine Screen,Urine PRESUMPTIVE POSITIVE; Benzodiazepines Screen,Urine PRESUMPTIVE NEGATIVE; Cannabinoid Screen,Urine PRESUMPTIVE NEGATIVE; Cocaine Screen,Urine PRESUMPTIVE NEGATIVE; Methadone Screen,Urine PRESUMPTIVE NEGATIVE; Opiate Screen,Urine PRESUMPTIVE NEGATIVE
[2020-07-19 00:45] LABS: Bacteria,Urine 1+ /HPF (Negative); Bilirubin,Urine NEG (Negative); Blood,Urine NEG (Negative); Color,Urine Yellow (Yellow); Mucus,Urine FEW /HPF; Protein,Urine <15 mg/dL mg/dL (Negative); Urobilinogen,Urine < 2.0 mg/dL (<2.0)
[2020-07-19 03:01] VITALS: BP 118/72
--- NOTE | 2020-07-19 10:11 | Consultation ---
History of Present Illness - Reason for Consult Consult date: 07/19/20 Reason for consult: SI - History of Present Psychiatric Illness Tasia Medellin is a 24y/o female who presented to the ER with being off meds, suicidal thoughts and self mutilating. During my interview with the patient she states she "feels a little better than yesterday." The patient states she's been off her meds "since before ." She says "I wasn't able to fill them." The patient verbalizes "suicidal thoughts that come in waves." She says "I literally had a breakdown last night. The suicidal thoughts were bad." She verbalizes using "meth." The patient says "If you can get me somewhere. I need help." She denies hallucinations. PAST PSYCHIATRIC HISTORY Diagnoses: Bipolar Suicide attempts or Self-harm behavior: "over 10" Prior psychiatric hospitalizations: Yes Substance Abuse history: meth Previous psychiatric medications tried: [place], seroquel, neurontin Outpatient treatment: yes PAST MEDICAL HISTORY: None reported Family Psychiatric History: None reported or documented SOCIAL HISTORY Marital Status: single Living Arrangements: homeless Employment Status: Unemployed Access to guns/weapons: Denies Education: high school graduate History of Abuse: Denies Legal History: None reported REVIEW OF SYSTEMS Constitutional: Negative for weight loss ENT: Negative for stridor Respiratory: Negative for cough or hemoptysis All other systems reviewed and are negative MENTAL STATUS EXAMINATION General Appearance and Behavior: Age appropriate, good hygiene, not wearing appropriate clothes, good eye contact, cooperative polite with questioning. Cooperation: Participating/engaged Psychomotor Behavior: Psychomotor normal Mood: "depressed" Affect and affective range: Congruent with stated mood Thought Process: goal directed Thought Content: None Speech: normal tone and pace Suicidal Ideation: Yes Homicidal Ideation: Denies HI Hallucinations: Denies Delusions: None elicited Impulse Control: Limited Insight and Judgment: Limited insight and judgment Memory: Normal Attention: Normal Orientation: Alert, oriented, Assessment and Plan Methamphetamine Use Disorder Bipolar Disorder, Current Episode Depressed Noncompliance with other medical treatment and regimen Treatment 1013 Restart home meds Start Seroquel 25mg po BID Start [place] 300mg po daily Start Trazodone 50mg po qhs Medical: Per primary Sitter: Defer to [facility] Disposition: Recommend acute inpatient treatment Will follow on Erik if not transferred. Medications and Allergies Allergies Allergy/AdvReac Type Severity Reaction Status Date / Time No Known Allergies Allergy Verified 04/10/19 04:13 Home Medications Medication Instructions Recorded Confirmed Last Taken Type Vit,Calc76/Iron/Folic 1 each PO DAILY 08/15/18 06/24/20 1 Week Ago History [Pnv 29-1 Tablet] ~08/08/18 Lidocain2.5%/Prilocai2.5% [Emla] 5 gm TP PRN #1 tube 08/18/18 06/24/20 Unknown Rx Benzonatate [Tessalon Perles] 100 mg PO Q8HR PRN #20 capsule 04/10/19 06/24/20 Unknown Rx Ketorolac [Toradol] 10 mg PO Q6H PRN #15 tablet 04/10/19 06/24/20 Unknown Rx Acetaminophen/Codeine [Tylenol 1 tab PO Q8H PRN #8 tab 09/12/19 06/24/20 Unknown Rx /Codeine # 3 tab] Mental Status Exam - Vital signs Last Vital Signs Temp 98.4 F 07/19/20 02:59 Pulse 88 07/19/20 02:59 Resp 18 07/19/20 02:59 BP 118/72 07/19/20 02:59 Pulse Ox 98 07/19/20 02:59 Results Result Diagrams: 07/18/20 22:26 07/18/20 22:26 Abnormal lab results 07/18/20 07/18/20 07/18/20 Range/Units 22:26 22:26 22:26 RDW 15.5 H (13.2-15.2) % Creatinine 0.5 L (0.6-1.2) mg/dL Glucose 122 H (65-100) mg/dL Salicylates < 0.3 L (2.8-20.0) mg/dL Acetaminophen (10.0-30.0) ug/mL 07/18/20 Range/Units 22:26 RDW (13.2-15.2) % Creatinine (0.6-1.2) mg/dL Glucose (65-100) mg/dL Salicylates (2.8-20.0) mg/dL Acetaminophen 5.0 L (10.0-30.0) ug/mL All other labs normal.
[2020-07-19] MEDS ORDERED: QUEtiapine 25 MG TAB PO SCH (11:00)
[2020-07-19] MEDS ORDERED: LITHIUM CARBONATE 300 MG CAP PO SCH (11:00)
[2020-07-19] MEDS ORDERED: SODIUM CHLORIDE 0.9% 1000 ML 1,000 ML IV ONE (15:16)
[2020-07-19] MEDS ORDERED: traZODone 50 MG TAB PO SCH (22:00)
== END 2020-07-19 16:04 ==
LOC: EEVIPCON 21:54 → ED 21:54
DX: F31.89 Other bipolar disorder (principal); E11.9 Type 2 diabetes mellitus without complications; F15.10 Other stimulant abuse, uncomplicated
CPT/HCPCS: 36415; 80048; 80307; 81001; 84703; 85025; 99285; J0690; 80320; G0480

== ENCOUNTER 2021-08-05 17:36 | Emergency (ER) | payer MEDICAID ==
--- NOTE | 2021-08-05 19:22 | Emergency Department Report ---
HPI - General Chief Complaint: Psych Time Seen by Provider: 08/05/21 18:34 - HPI HPI: 25-year-old female presents to the emergency department for a mental health evaluation. The patient presents with bilateral superficial lacerations to the forearms. She points to the left arm and says that it was "stress cutting." She then points to the right arm and says that those cuts were a suicide attempt. The patient has a history of schizophrenia, bipolar disorder and depression. She has not been on medications for about 3 weeks. She complains of auditory hallucinations in which there is a "constant narrative." She denies any visual hallucinations or homicidal ideations. She denies any past medical history. She is a tobacco smoker but denies any illicit drug use. ED Past Medical Hx - Past Medical History Hx Hypertension: No Hx Congestive Heart Failure: No Hx Diabetes: Yes (gestational only) Hx Deep Vein Thrombosis: No Hx Renal Disease: No Hx Sickle Cell Disease: No Hx Seizures: No Hx Psychiatric Treatment: Yes (depression, Multiple suicide attempts) Hx Asthma: No Hx COPD: No Hx HIV: No - Surgical History Hx Cholecystectomy: Yes - Social History Smoking Status: Current Every Day Smoker - Medications Home Medications: Home Medications Medication Instructions Recorded Confirmed Last Taken Type Vit,Calc76/Iron/Folic 1 each PO DAILY 08/15/18 06/24/20 1 Week Ago History [Pnv 29-1 Tablet] ~08/08/18 Lidocain2.5%/Prilocai2.5% [Emla] 5 gm TP PRN #1 tube 08/18/18 06/24/20 Unknown Rx Benzonatate [Tessalon Perles] 100 mg PO Q8HR PRN #20 capsule 04/10/19 06/24/20 Unknown Rx Ketorolac [Toradol] 10 mg PO Q6H PRN #15 tablet 04/10/19 06/24/20 Unknown Rx Acetaminophen/Codeine [Tylenol 1 tab PO Q8H PRN #8 tab 09/12/19 06/24/20 Unknown Rx /Codeine # 3 tab] ED Review of Systems ROS: Stated complaint: SUPERFICIAL LACERATIONS TO FOREARM Other details as noted in HPI Comment: All other systems reviewed and negative Constitutional: denies: chills, fever Respiratory: denies: cough, shortness of breath Cardiovascular: denies: chest pain, palpitations Gastrointestinal: denies: abdominal pain, vomiting Musculoskeletal: denies: back pain, arthralgia Skin: other (Bilateral forearm superficial lacerations). denies: rash Neurological: denies: numbness, paresthesias Psychiatric: anxiety, depression, auditory hallucinations, suicidal thoughts. denies: visual hallucinations, homicidal thoughts Physical Exam - Physical Exam Vital Signs: Vital Signs 08/05/21 18:08 O2 Sat by Pulse 97 Oximetry Physical Exam: GENERAL: The patient is well-developed well-nourished. HENT: Normocephalic. Atraumatic. Patient has moist mucous membranes. EYES: Extraocular motions are intact. NECK: Supple. Trachea is midline. CHEST/LUNGS: Clear to auscultation. There is no respiratory distress noted. HEART/CARDIOVASCULAR: Regular. There is no tachycardia. There is no murmur. ABDOMEN: Abdomen is soft, nontender. Patient has normal bowel sounds. SKIN: Skin is warm and dry. There are multiple horizontal superficial lacerations to the bilateral volar forearm. No current bleeding. No surrounding erythema or purulent discharge. NEURO: The patient is awake, alert, and oriented. The patient is cooperative. The patient has no focal neurologic deficits. Normal speech. MUSCULOSKELETAL: There is some mild tenderness to palpation over the bilateral volar forearms where the patient has self-inflicted wounds. There is no limitation range of motion. Radial pulse +2/4 and capillary refill less than 2 seconds to the affected bilateral upper extremities. PSYCH: Patient has a flat affect. ED Course Vital Signs 08/05/21 18:08 O2 Sat by Pulse 97 Oximetry ED Medical Decision Making - Lab Data Result diagrams: 08/05/21 19:11 08/05/21 19:11 Lab Results 08/05/21 08/05/21 08/05/21 Range/Units 19:11 19:11 19:11 WBC 8.9 (4.5-11.0) K/mm3 RBC 5.00 (3.65-5.03) M/mm3 Hgb 14.9 H (10.1-14.3) gm/dl Hct 45.2 H (30.3-42.9) % MCV 90 (79-97) fl MCH 30 (28-32) pg MCHC 33 (30-34) % RDW 13.9 (13.2-15.2) % Plt Count 291 (140-440) K/mm3 Lymph % (Auto) 35.1 H (13.4-35.0) % [place] % (Auto) 4.5 (0.0-7.3) % Eos % (Auto) 0.8 (0.0-4.3) % Baso % (Auto) 0.4 (0.0-1.8) % Lymph # (Auto) 3.1 (1.2-5.4) K/mm3 [place] # (Auto) 0.4 (0.0-0.8) K/mm3 Eos # (Auto) 0.1 (0.0-0.4) K/mm3 Baso # (Auto) 0.0 (0.0-0.1) K/mm3 Seg Neutrophils % 59.2 (40.0-70.0) % Seg Neutrophils # 5.3 (1.8-7.7) K/mm3 Sodium 138 (137-145) mmol/L Potassium 3.8 (3.6-5.0) mmol/L Chloride 102.7 (98-107) mmol/L Carbon Dioxide 19 L (22-30) mmol/L Anion Gap 20 mmol/L BUN 6 L (7-17) mg/dL Creatinine 0.6 (0.6-1.2) mg/dL Estimated GFR > 60 ml/min BUN/Creatinine Ratio 10 % Glucose 97 (65-100) mg/dL Calcium 9.3 (8.4-10.2) mg/dL Urine Color (Yellow) Urine Turbidity (Clear) Urine pH (5.0-7.0) Ur Specific [place] (1.003-1.030) Urine Protein (Negative) mg/dL Urine Glucose (UA) (Negative) mg/dL Urine Ketones (Negative) mg/dL Urine Blood (Negative) Urine Nitrite (Negative) Urine Bilirubin (Negative) Urine Urobilinogen (<2.0) mg/dL Ur Leukocyte Esterase (Negative) Urine WBC (Auto) (0.0-6.0) /HPF Urine RBC (Auto) (0.0-6.0) /HPF U Epithel Cells (Auto) (0-13.0) /HPF Urine Bacteria (Auto) (Negative) /HPF Urine Mucus /HPF Urine Yeast (Budding) /HPF Salicylates < 0.3 L (2.8-20.0) mg/dL Urine Opiates Screen Urine Methadone Screen Acetaminophen (10.0-30.0) ug/mL Ur Barbiturates Screen Ur Phencyclidine Scrn Ur Amphetamines Screen U Benzodiazepines Scrn Urine Cocaine Screen U Marijuana (THC) Screen Drugs of Abuse Note Plasma/Serum Alcohol (0-0.07) % 08/05/21 08/05/21 08/05/21 Range/Units 19:11 19:11 23:41 WBC (4.5-11.0) K/mm3 RBC (3.65-5.03) M/mm3 Hgb (10.1-14.3) gm/dl Hct (30.3-42.9) % MCV (79-97) fl MCH (28-32) pg MCHC (30-34) % RDW (13.2-15.2) % Plt Count (140-440) K/mm3 Lymph % (Auto) (13.4-35.0) % [place] % (Auto) (0.0-7.3) % Eos % (Auto) (0.0-4.3) % Baso % (Auto) (0.0-1.8) % Lymph # (Auto) (1.2-5.4) K/mm3 [place] # (Auto) (0.0-0.8) K/mm3 Eos # (Auto) (0.0-0.4) K/mm3 Baso # (Auto) (0.0-0.1) K/mm3 Seg Neutrophils % (40.0-70.0) % Seg Neutrophils # (1.8-7.7) K/mm3 Sodium (137-145) mmol/L Potassium (3.6-5.0) mmol/L Chloride (98-107) mmol/L Carbon Dioxide (22-30) mmol/L Anion Gap mmol/L BUN (7-17) mg/dL Creatinine (0.6-1.2) mg/dL Estimated GFR ml/min BUN/Creatinine Ratio % Glucose (65-100) mg/dL Calcium (8.4-10.2) mg/dL Urine Color Yellow (Yellow) Urine Turbidity Slightly-cloudy (Clear) Urine pH 5.0 (5.0-7.0) Ur Specific [place] 1.011 (1.003-1.030) Urine Protein <15 mg/dl (Negative) mg/dL Urine Glucose (UA) Neg (Negative) mg/dL Urine Ketones 80 (Negative) mg/dL Urine Blood Mod (Negative) Urine Nitrite Pos (Negative) Urine Bilirubin Neg (Negative) Urine Urobilinogen < 2.0 (<2.0) mg/dL Ur Leukocyte Esterase Lg (Negative) Urine WBC (Auto) 101.0 H (0.0-6.0) /HPF Urine RBC (Auto) 2.0 (0.0-6.0) /HPF U Epithel Cells (Auto) 10.0 (0-13.0) /HPF Urine Bacteria (Auto) 2+ (Negative) /HPF Urine Mucus Few /HPF Urine Yeast (Budding) 1+ /HPF Salicylates (2.8-20.0) mg/dL Urine Opiates Screen Urine Methadone Screen Acetaminophen 5.0 L (10.0-30.0) ug/mL Ur Barbiturates Screen Ur Phencyclidine Scrn Ur Amphetamines Screen U Benzodiazepines Scrn Urine Cocaine Screen U Marijuana (THC) Screen Drugs of Abuse Note Plasma/Serum Alcohol < 0.01 (0-0.07) % 08/05/21 Range/Units 23:41 WBC (4.5-11.0) K/mm3 RBC (3.65-5.03) M/mm3 Hgb (10.1-14.3) gm/dl Hct (30.3-42.9) % MCV (79-97) fl MCH (28-32) pg MCHC (30-34) % RDW (13.2-15.2) % Plt Count (140-440) K/mm3 Lymph % (Auto) (13.4-35.0) % [place] % (Auto) (0.0-7.3) % Eos % (Auto) (0.0-4.3) % Baso % (Auto) (0.0-1.8) % Lymph # (Auto) (1.2-5.4) K/mm3 [place] # (Auto) (0.0-0.8) K/mm3 Eos # (Auto) (0.0-0.4) K/mm3 Baso # (Auto) (0.0-0.1) K/mm3 Seg Neutrophils % (40.0-70.0) % Seg Neutrophils # (1.8-7.7) K/mm3 Sodium (137-145) mmol/L Potassium (3.6-5.0) mmol/L Chloride (98-107) mmol/L Carbon Dioxide (22-30) mmol/L Anion Gap mmol/L BUN (7-17) mg/dL Creatinine (0.6-1.2) mg/dL Estimated GFR ml/min BUN/Creatinine Ratio % Glucose (65-100) mg/dL Calcium (8.4-10.2) mg/dL Urine Color (Yellow) Urine Turbidity (Clear) Urine pH (5.0-7.0) Ur Specific [place] (1.003-1.030) Urine Protein (Negative) mg/dL Urine Glucose (UA) (Negative) mg/dL Urine Ketones (Negative) mg/dL Urine Blood (Negative) Urine Nitrite (Negative) Urine Bilirubin (Negative) Urine Urobilinogen (<2.0) mg/dL Ur Leukocyte Esterase (Negative) Urine WBC (Auto) (0.0-6.0) /HPF Urine RBC (Auto) (0.0-6.0) /HPF U Epithel Cells (Auto) (0-13.0) /HPF Urine Bacteria (Auto) (Negative) /HPF Urine Mucus /HPF Urine Yeast (Budding) /HPF Salicylates (2.8-20.0) mg/dL Urine Opiates Screen Presumptive negative Urine Methadone Screen Presumptive negative Acetaminophen (10.0-30.0) ug/mL Ur Barbiturates Screen Presumptive negative Ur Phencyclidine Scrn Presumptive negative Ur Amphetamines Screen Presumptive positive U Benzodiazepines Scrn Presumptive negative Urine Cocaine Screen Presumptive negative U Marijuana (THC) Screen Presumptive negative Drugs of Abuse Note Disclamer Plasma/Serum Alcohol (0-0.07) % - Medical Decision Making This patient presents to the emergency department for a mental health evaluation with depression, suicidal ideations and self-inflicted wounds. She has multiple horizontal superficial lacerations to the bilateral volar forearms. One arm she says was due to "stress cutting" and the other 1 was an attempt to kill herself. For this reason the patient has been placed on a 1013 and ED hold. Labs have been mostly unremarkable including CBC, metabolic panel, blood alcohol level, urinalysis, but UDS is positive for amphetamines. Initially the patient had more of a flat affect and appears depressed. Shortly after my initial examination the patient became much more agitated and was given a dose of Geodon. After this the patient has been resting comfortably, but is easily arousable and is not displaying any significant agitation or aggression at this time. Vital signs reassuring throughout her ED course thus far including being afebrile. We will continue to monitor the patient during her ED course. She is medically cleared for psychiatric placement. Critical Care Time: No Critical care attestation.: If time is entered above; I have spent that time in minutes in the direct care of this critically ill patient, excluding procedure time. ED Disposition Clinical Impression: Suicidal ideations Self-inflicted laceration of wrist Qualifiers: Encounter type: initial encounter Laterality: unspecified laterality Qualified Code(s): S61.519A - Laceration without foreign body of unspecified wrist, initial encounter; X78.9XXA - Intentional self-harm by unspecified sharp object, initial encounter Disposition: [address] [place] [address] Is pt being admited?: No Condition: Stable Time of Disposition: 00:51
[2021-08-05 19:23] LABS: Basophils % (Auto) 0.4 % (0.0-1.8); Eosinophils # (Auto) 0.1 K/mm3 (0.0-0.4); Eosinophils % (Auto) 0.8 % (0.0-4.3); Hematocrit 45.2 % (30.3-42.9); Hemoglobin 14.9 gm/dl (10.1-14.3); Lymphocytes # (Auto) 3.1 K/mm3 (1.2-5.4); Lymphocytes % (Auto) 35.1 % (13.4-35.0); Mean Corpuscular HGB Conc 33 % (30-34); Mean Corpuscular Volume 90 fl (79-97); Monocytes # (Auto) 0.4 K/mm3 (0.0-0.8); Monocytes % (Auto) 4.5 % (0.0-7.3); Platelet Count 291 K/mm3 (140-440); Red Cell Distribution Width 13.9 % (13.2-15.2)
[2021-08-05 19:38] LABS: BUN/Creatinine Ratio 10; Blood Urea Nitrogen 6 mg/dL (7-17); Calcium 9.3 mg/dL (8.4-10.2); Hemolysis Index 18
[2021-08-05] MEDS ORDERED: ZIPRASIDONE MESYLATE 20 MG VIAL IM ONE (20:50)
[2021-08-06 00:11] LABS: Bacteria,Urine 2+ /HPF (Negative); Bilirubin,Urine NEG (Negative); Blood,Urine MOD (Negative); Color,Urine Yellow (Yellow); Mucus,Urine FEW /HPF; Protein,Urine <15 mg/dL mg/dL (Negative); Urobilinogen,Urine < 2.0 mg/dL (<2.0)
[2021-08-06 00:15] LABS: Amphetamine Screen,Urine PRESUMPTIVE POSITIVE; Benzodiazepines Screen,Urine PRESUMPTIVE NEGATIVE; Cannabinoid Screen,Urine PRESUMPTIVE NEGATIVE; Cocaine Screen,Urine PRESUMPTIVE NEGATIVE; Methadone Screen,Urine PRESUMPTIVE NEGATIVE; Opiate Screen,Urine PRESUMPTIVE NEGATIVE
[2021-08-06] MEDS: NITROFURANTOIN MONOHYD/M-CRYST 100 MG CAP PO SCH ×3 (01:02→23:46)
--- NOTE | 2021-08-06 10:52 | Consultation ---
History of Present Illness - Reason for Consult Consult date: 08/06/21 Reason for consult: mental health evaluation - History of Present Psychiatric Illness ED Note: 25-year-old female presents to the emergency department for a mental health evaluation. The patient presents with bilateral superficial lacerations to the forearms. She points to the left arm and says that it was "stress cutting." She then points to the right arm and says that those cuts were a suicide attempt. The patient has a history of schizophrenia, bipolar disorder and depression. She has not been on medications for about 3 weeks. She complains of auditory hallucinations in which there is a "constant narrative." She denies any visual hallucinations or homicidal ideations. She denies any past medical history. She is a tobacco smoker but denies any illicit drug use. Tasia Medellin is a 25 year old female with history of Bipolar disorder who pre sents to ED for mental health evaluation. In my interview with the patient, she is calm, alert and oriented x 3. The patient presents with bilateral superficial lacerations to the forearms; she reports that she started cutting since age 12. She reports recent stressors such as " homelessness, recent brake up with boy friend and her inability to see her 2 children." The patient is noncompliant with psychotropic medications, states she last took meds about 3 weeks ago. She also reports using Meth yesterday. The patient denies any current suicidal/homicidal ideation and denies hallucinations. She denies any current urge to cut. PAST PSYCHIATRIC HISTORY Diagnoses: Bipolar Suicide attempts or Self-harm behavior: "over 10" Prior psychiatric hospitalizations: Yes Substance Abuse history: meth Previous psychiatric medications tried: [place], seroquel, neurontin Outpatient treatment: yes PAST MEDICAL HISTORY: None reported Family Psychiatric History: None reported or documented SOCIAL HISTORY Marital Status: single Living Arrangements: homeless Employment Status: Unemployed Access to guns/weapons: Denies Education: high school graduate History of Abuse: Denies Legal History: None reported REVIEW OF SYSTEMS Constitutional: Negative for weight loss ENT: Negative for stridor Respiratory: Negative for cough or hemoptysis All other systems reviewed and are negative MENTAL STATUS EXAMINATION General Appearance and Behavior: Age appropriate, good hygiene, not wearing appropriate clothes, good eye contact, cooperative polite with questioning. Cooperation: Participating/engaged Psychomotor Behavior: Psychomotor normal Mood: "depressed" Affect and affective range: Congruent with stated mood Thought Process: goal directed Thought Content: None Speech: normal tone and pace Suicidal Ideation: Denies Homicidal Ideation: Denies HI Hallucinations: Denies Delusions: None elicited Impulse Control: Limited Insight and Judgment: Limited insight and poor judgment Memory: Normal Attention: Normal Orientation: Alert, oriented, Assessment and Plan Methamphetamine Use Disorder Bipolar Disorder, Current Episode Depressed Noncompliance with other medical treatment and regimen Treatment 1013 Restart home meds Start Seroquel 25mg po BID Start [place] 300mg po daily Start Trazodone 50mg po qhs Medical: Per primary Sitter: Defer to [facility] Disposition: Recommend acute inpatient treatment Will follow on Monday if not transferred. Medications and Allergies Medications and Allergies Allergies Allergy/AdvReac Type Severity Reaction Status Date / Time No Known Allergies Allergy Verified 04/10/19 04:13 Home Medications Medication Instructions Recorded Confirmed Last Taken Type Vit,Calc76/Iron/Folic 1 each PO DAILY 08/15/18 06/24/20 1 Week Ago History [Pnv 29-1 Tablet] ~08/08/18 Lidocain2.5%/Prilocai2.5% [Emla] 5 gm TP PRN #1 tube 08/18/18 06/24/20 Unknown Rx Benzonatate [Tessalon Perles] 100 mg PO Q8HR PRN #20 capsule 04/10/19 06/24/20 Unknown Rx Ketorolac [Toradol] 10 mg PO Q6H PRN #15 tablet 04/10/19 06/24/20 Unknown Rx Acetaminophen/Codeine [Tylenol 1 tab PO Q8H PRN #8 tab 09/12/19 06/24/20 Unknown Rx /Codeine # 3 tab] Active Meds: Active Medications Nitrofurantoin Macrocrystals (Nitrofurantoin Monohyd/M-Cryst 100 Mg Cap) 100 mg PO Q12HR FLAQUITA Last Admin: 08/06/21 10:31 Dose: 100 mg Documented by: Mental Status Exam - Vital signs Last Vital Signs Temp 97.5 F L 08/06/21 03:00 Pulse 90 08/06/21 03:00 Resp 18 08/06/21 06:00 BP 117/68 08/06/21 03:00 Pulse Ox 100 08/06/21 06:00 Results Result Diagrams: 08/05/21 19:11 08/05/21 19:11 Abnormal lab results 08/05/21 08/05/21 08/05/21 Range/Units 19:11 19:11 19:11 Hgb 14.9 H (10.1-14.3) gm/dl Hct 45.2 H (30.3-42.9) % Lymph % (Auto) 35.1 H (13.4-35.0) % Carbon Dioxide 19 L (22-30) mmol/L BUN 6 L (7-17) mg/dL Urine WBC (Auto) (0.0-6.0) /HPF Salicylates < 0.3 L (2.8-20.0) mg/dL Acetaminophen (10.0-30.0) ug/mL 08/05/21 08/05/21 Range/Units 19:11 23:41 Hgb (10.1-14.3) gm/dl Hct (30.3-42.9) % Lymph % (Auto) (13.4-35.0) % Carbon Dioxide (22-30) mmol/L BUN (7-17) mg/dL Urine WBC (Auto) 101.0 H (0.0-6.0) /HPF Salicylates (2.8-20.0) mg/dL Acetaminophen 5.0 L (10.0-30.0) ug/mL All other labs normal.
[2021-08-06] MEDS: LITHIUM CARBONATE 300 MG CAP PO SCH (11:38)
[2021-08-06] MEDS: QUEtiapine 25 MG TAB PO SCH ×2 (11:38→23:46)
--- NOTE | 2021-08-06 11:52 | Event Note ---
Date: 08/06/21 The patient was evaluated in the emergency department for symptoms described in the history of present illness. He/she was evaluated in the context of the global COVID-19 pandemic, which necessitated consideration that the patient might be at risk for infection with the virus that causes COVID-19. Institutional protocols and algorithms that pertain to the evaluation of patients at risk for COVID-19 are in a state of rapid change based on information released by regulatory bodies including the CDC and federal and state organizations. These policies and algorithms were followed during the patient's care in the emergency department. Please note that these policies, procedures and recommendations changed on a rapid basis. Laboratory studies, vital signs, nursing documentation, ER documentation, and psychiatric documentation are reviewed and appreciated. Nursing team reports no acute events this morning or concerns. The patient is awake and ambulating and does not appear to be in any acute distress. test has been ordered by myself, and the results are pending. Presuming this patient is not , we would consider this patient medically suitable for psychiatric disposition. Antibiotics have been ordered for bacteriuria/pyuria The patient was deemed medically suitable for psychiatric disposition and placement during her initial ER evaluation. The patient continues to remain medically suitable for psychiatric placement and disposition. sHe is currently pending psychiatric placement. The patient to me denies homicidality and suicidality at this time. Vital Signs 08/05/21 08/05/21 08/06/21 18:08 23:44 03:00 Temperature 97.9 F 97.5 F L Pulse Rate 109 H 90 Respiratory 18 16 Rate Blood Pressure 134/93 117/68 [Right] O2 Sat by Pulse 97 100 96 Oximetry 08/06/21 06:00 Temperature Pulse Rate Respiratory 18 Rate Blood Pressure [Right] O2 Sat by Pulse 100 Oximetry Lab Results 08/05/21 08/05/21 08/05/21 Range/Units 19:11 19:11 19:11 WBC 8.9 (4.5-11.0) K/mm3 RBC 5.00 (3.65-5.03) M/mm3 Hgb 14.9 H (10.1-14.3) gm/dl Hct 45.2 H (30.3-42.9) % MCV 90 (79-97) fl MCH 30 (28-32) pg MCHC 33 (30-34) % RDW 13.9 (13.2-15.2) % Plt Count 291 (140-440) K/mm3 Lymph % (Auto) 35.1 H (13.4-35.0) % [place] % (Auto) 4.5 (0.0-7.3) % Eos % (Auto) 0.8 (0.0-4.3) % Baso % (Auto) 0.4 (0.0-1.8) % Lymph # (Auto) 3.1 (1.2-5.4) K/mm3 [place] # (Auto) 0.4 (0.0-0.8) K/mm3 Eos # (Auto) 0.1 (0.0-0.4) K/mm3 Baso # (Auto) 0.0 (0.0-0.1) K/mm3 Seg Neutrophils % 59.2 (40.0-70.0) % Seg Neutrophils # 5.3 (1.8-7.7) K/mm3 Sodium 138 (137-145) mmol/L Potassium 3.8 (3.6-5.0) mmol/L Chloride 102.7 (98-107) mmol/L Carbon Dioxide 19 L (22-30) mmol/L Anion Gap 20 mmol/L BUN 6 L (7-17) mg/dL Creatinine 0.6 (0.6-1.2) mg/dL Estimated GFR > 60 ml/min BUN/Creatinine Ratio 10 % Glucose 97 (65-100) mg/dL Calcium 9.3 (8.4-10.2) mg/dL Urine Color (Yellow) Urine Turbidity (Clear) Urine pH (5.0-7.0) Ur Specific [place] (1.003-1.030) Urine Protein (Negative) mg/dL Urine Glucose (UA) (Negative) mg/dL Urine Ketones (Negative) mg/dL Urine Blood (Negative) Urine Nitrite (Negative) Urine Bilirubin (Negative) Urine Urobilinogen (<2.0) mg/dL Ur Leukocyte Esterase (Negative) Urine WBC (Auto) (0.0-6.0) /HPF Urine RBC (Auto) (0.0-6.0) /HPF U Epithel Cells (Auto) (0-13.0) /HPF Urine Bacteria (Auto) (Negative) /HPF Urine Mucus /HPF Urine Yeast (Budding) /HPF Salicylates < 0.3 L (2.8-20.0) mg/dL Urine Opiates Screen Urine Methadone Screen Acetaminophen (10.0-30.0) ug/mL Ur Barbiturates Screen Ur Phencyclidine Scrn Ur Amphetamines Screen U Benzodiazepines Scrn Urine Cocaine Screen U Marijuana (THC) Screen Drugs of Abuse Note Plasma/Serum Alcohol (0-0.07) % 08/05/21 08/05/21 08/05/21 Range/Units 19:11 19:11 23:41 WBC (4.5-11.0) K/mm3 RBC (3.65-5.03) M/mm3 Hgb (10.1-14.3) gm/dl Hct (30.3-42.9) % MCV (79-97) fl MCH (28-32) pg MCHC (30-34) % RDW (13.2-15.2) % Plt Count (140-440) K/mm3 Lymph % (Auto) (13.4-35.0) % [place] % (Auto) (0.0-7.3) % Eos % (Auto) (0.0-4.3) % Baso % (Auto) (0.0-1.8) % Lymph # (Auto) (1.2-5.4) K/mm3 [place] # (Auto) (0.0-0.8) K/mm3 Eos # (Auto) (0.0-0.4) K/mm3 Baso # (Auto) (0.0-0.1) K/mm3 Seg Neutrophils % (40.0-70.0) % Seg Neutrophils # (1.8-7.7) K/mm3 Sodium (137-145) mmol/L Potassium (3.6-5.0) mmol/L Chloride (98-107) mmol/L Carbon Dioxide (22-30) mmol/L Anion Gap mmol/L BUN (7-17) mg/dL Creatinine (0.6-1.2) mg/dL Estimated GFR ml/min BUN/Creatinine Ratio % Glucose (65-100) mg/dL Calcium (8.4-10.2) mg/dL Urine Color Yellow (Yellow) Urine Turbidity Slightly-cloudy (Clear) Urine pH 5.0 (5.0-7.0) Ur Specific [place] 1.011 (1.003-1.030) Urine Protein <15 mg/dl (Negative) mg/dL Urine Glucose (UA) Neg (Negative) mg/dL Urine Ketones 80 (Negative) mg/dL Urine Blood Mod (Negative) Urine Nitrite Pos (Negative) Urine Bilirubin Neg (Negative) Urine Urobilinogen < 2.0 (<2.0) mg/dL Ur Leukocyte Esterase Lg (Negative) Urine WBC (Auto) 101.0 H (0.0-6.0) /HPF Urine RBC (Auto) 2.0 (0.0-6.0) /HPF U Epithel Cells (Auto) 10.0 (0-13.0) /HPF Urine Bacteria (Auto) 2+ (Negative) /HPF Urine Mucus Few /HPF Urine Yeast (Budding) 1+ /HPF Salicylates (2.8-20.0) mg/dL Urine Opiates Screen Urine Methadone Screen Acetaminophen 5.0 L (10.0-30.0) ug/mL Ur Barbiturates Screen Ur Phencyclidine Scrn Ur Amphetamines Screen U Benzodiazepines Scrn Urine Cocaine Screen U Marijuana (THC) Screen Drugs of Abuse Note Plasma/Serum Alcohol < 0.01 (0-0.07) % 08/05/21 Range/Units 23:41 WBC (4.5-11.0) K/mm3 RBC (3.65-5.03) M/mm3 Hgb (10.1-14.3) gm/dl Hct (30.3-42.9) % MCV (79-97) fl MCH (28-32) pg MCHC (30-34) % RDW (13.2-15.2) % Plt Count (140-440) K/mm3 Lymph % (Auto) (13.4-35.0) % [place] % (Auto) (0.0-7.3) % Eos % (Auto) (0.0-4.3) % Baso % (Auto) (0.0-1.8) % Lymph # (Auto) (1.2-5.4) K/mm3 [place] # (Auto) (0.0-0.8) K/mm3 Eos # (Auto) (0.0-0.4) K/mm3 Baso # (Auto) (0.0-0.1) K/mm3 Seg Neutrophils % (40.0-70.0) % Seg Neutrophils # (1.8-7.7) K/mm3 Sodium (137-145) mmol/L Potassium (3.6-5.0) mmol/L Chloride (98-107) mmol/L Carbon Dioxide (22-30) mmol/L Anion Gap mmol/L BUN (7-17) mg/dL Creatinine (0.6-1.2) mg/dL Estimated GFR ml/min BUN/Creatinine Ratio % Glucose (65-100) mg/dL Calcium (8.4-10.2) mg/dL Urine Color (Yellow) Urine Turbidity (Clear) Urine pH (5.0-7.0) Ur Specific [place] (1.003-1.030) Urine Protein (Negative) mg/dL Urine Glucose (UA) (Negative) mg/dL Urine Ketones (Negative) mg/dL Urine Blood (Negative) Urine Nitrite (Negative) Urine Bilirubin (Negative) Urine Urobilinogen (<2.0) mg/dL Ur Leukocyte Esterase (Negative) Urine WBC (Auto) (0.0-6.0) /HPF Urine RBC (Auto) (0.0-6.0) /HPF U Epithel Cells (Auto) (0-13.0) /HPF Urine Bacteria (Auto) (Negative) /HPF Urine Mucus /HPF Urine Yeast (Budding) /HPF Salicylates (2.8-20.0) mg/dL Urine Opiates Screen Presumptive negative Urine Methadone Screen Presumptive negative Acetaminophen (10.0-30.0) ug/mL Ur Barbiturates Screen Presumptive negative Ur Phencyclidine Scrn Presumptive negative Ur Amphetamines Screen Presumptive positive U Benzodiazepines Scrn Presumptive negative Urine Cocaine Screen Presumptive negative U Marijuana (THC) Screen Presumptive negative Drugs of Abuse Note Disclamer Plasma/Serum Alcohol (0-0.07) % 08/06/2021; 13: 04 test negative. Patient medically suitable for psychiatric disposition and placement at this time.
[2021-08-06] MEDS: traZODone 50 MG TAB PO SCH (23:46)
--- NOTE | 2021-08-07 09:54 | Progress Note ---
Subjective - Reason for Consult Consult date: 08/07/21 Reason for consult: suicidal iideation - Chief Complaint Chief complaint: The patient was seen this morning,she reports doing better. She continues to present with depressive mood. She reports sleep and appetite as good. The patient denies any current suicidal ideation and denies hallucinations. REVIEW OF SYSTEMS Constitutional: Negative for weight loss ENT: Negative for stridor Respiratory: Negative for cough or hemoptysis All other systems reviewed and are negative MENTAL STATUS EXAMINATION General Appearance and Behavior: Age appropriate, good hygiene, not wearing appropriate clothes, good eye contact, cooperative polite with questioning. Cooperation: Participating/engaged Psychomotor Behavior: Psychomotor normal Mood: "depressed" Affect and affective range: Congruent with stated mood Thought Process: goal directed Thought Content: None Speech: normal tone and pace Suicidal Ideation: Denies Homicidal Ideation: Denies HI Hallucinations: Denies Delusions: None elicited Impulse Control: Limited Insight and Judgment: Limited insight and poor judgment Memory: Normal Attention: Normal Orientation: Alert, oriented, Assessment and Plan Methamphetamine Use Disorder Bipolar Disorder, Current Episode Depressed Noncompliance with other medical treatment and regimen Treatment 1013 Restart home meds Start Seroquel 25mg po BID Start [place] 300mg po daily Start Trazodone 50mg po qhs Medical: Per primary Sitter: Defer to [facility] Disposition: Recommend acute inpatient treatment Will follow on Monday if not transferred. Medications and Allergies Mental Status Exam - Vital signs Last Vital Signs Temp 99 F 08/06/21 19:50 Pulse 90 08/06/21 19:50 Resp 18 08/06/21 19:50 BP 93/55 08/06/21 19:50 Pulse Ox 98 08/06/21 21:47
[2021-08-07] MEDS ORDERED: BENZONATATE 100 MG CAP PO PRN (12:06)
[2021-08-07] MEDS ORDERED: IBUPROFEN 400 MG TAB PO PRN (12:06)
[2021-08-07] MEDS ORDERED: ONDANSETRON 4 MG ODT TAB PO PRN (12:06)
[2021-08-07] MEDS ORDERED: ACETAMINOPHEN 325 MG TAB PO PRN (12:06)
--- NOTE | 2021-08-07 12:06 | Event Note ---
Date: 08/07/21 The patient was evaluated in the emergency department for symptoms described in the history of present illness. He/she was evaluated in the context of the global COVID-19 pandemic, which necessitated consideration that the patient might be at risk for infection with the virus that causes COVID-19. Institutional protocols and algorithms that pertain to the evaluation of patients at risk for COVID-19 are in a state of rapid change based on information released by regulatory bodies including the CDC and federal and state organizations. These policies and algorithms were followed during the patient's care in the emergency department. Please note that these policies, procedures and recommendations changed on a rapid basis. Laboratory studies, vital signs, nursing documentation, ER documentation, and psychiatric documentation are reviewed and appreciated. Nursing team reports no acute events this morning or concerns. The patient is awake and does not appear to be in any acute distress. The patient was deemed medically suitable for psychiatric disposition and placement during his initial ER evaluation. The patient continues to remain medically suitable for psychiatric placement and disposition. sHe is currently pending psychiatric placement. While she is COVID-19 positive, she is not hypoxic and she is not in any respira tory distress Vital Signs 08/05/21 08/05/21 08/06/21 18:08 23:44 03:00 Temperature 97.9 F 97.5 F L Pulse Rate 109 H 90 Respiratory 18 16 Rate Blood Pressure 134/93 117/68 [Right] O2 Sat by Pulse 97 100 96 Oximetry 08/06/21 08/06/21 08/06/21 06:00 19:50 21:47 Temperature 99 F Pulse Rate 90 Respiratory 18 18 Rate Blood Pressure 93/55 [Right] O2 Sat by Pulse 100 98 98 Oximetry Lab Results 08/05/21 08/05/21 08/05/21 Range/Units 19:11 19:11 19:11 WBC 8.9 (4.5-11.0) K/mm3 RBC 5.00 (3.65-5.03) M/mm3 Hgb 14.9 H (10.1-14.3) gm/dl Hct 45.2 H (30.3-42.9) % MCV 90 (79-97) fl MCH 30 (28-32) pg MCHC 33 (30-34) % RDW 13.9 (13.2-15.2) % Plt Count 291 (140-440) K/mm3 Lymph % (Auto) 35.1 H (13.4-35.0) % [place] % (Auto) 4.5 (0.0-7.3) % Eos % (Auto) 0.8 (0.0-4.3) % Baso % (Auto) 0.4 (0.0-1.8) % Lymph # (Auto) 3.1 (1.2-5.4) K/mm3 [place] # (Auto) 0.4 (0.0-0.8) K/mm3 Eos # (Auto) 0.1 (0.0-0.4) K/mm3 Baso # (Auto) 0.0 (0.0-0.1) K/mm3 Seg Neutrophils % 59.2 (40.0-70.0) % Seg Neutrophils # 5.3 (1.8-7.7) K/mm3 Sodium 138 (137-145) mmol/L Potassium 3.8 (3.6-5.0) mmol/L Chloride 102.7 (98-107) mmol/L Carbon Dioxide 19 L (22-30) mmol/L Anion Gap 20 mmol/L BUN 6 L (7-17) mg/dL Creatinine 0.6 (0.6-1.2) mg/dL Estimated GFR > 60 ml/min BUN/Creatinine Ratio 10 % Glucose 97 (65-100) mg/dL Calcium 9.3 (8.4-10.2) mg/dL HCG, Quant (0-4) mIU/mL Urine Color (Yellow) Urine Turbidity (Clear) Urine pH (5.0-7.0) Ur Specific [place] (1.003-1.030) Urine Protein (Negative) mg/dL Urine Glucose (UA) (Negative) mg/dL Urine Ketones (Negative) mg/dL Urine Blood (Negative) Urine Nitrite (Negative) Urine Bilirubin (Negative) Urine Urobilinogen (<2.0) mg/dL Ur Leukocyte Esterase (Negative) Urine WBC (Auto) (0.0-6.0) /HPF Urine RBC (Auto) (0.0-6.0) /HPF U Epithel Cells (Auto) (0-13.0) /HPF Urine Bacteria (Auto) (Negative) /HPF Urine Mucus /HPF Urine Yeast (Budding) /HPF Salicylates < 0.3 L (2.8-20.0) mg/dL Urine Opiates Screen Urine Methadone Screen Acetaminophen (10.0-30.0) ug/mL Ur Barbiturates Screen Ur Phencyclidine Scrn Ur Amphetamines Screen U Benzodiazepines Scrn Urine Cocaine Screen U Marijuana (THC) Screen Drugs of Abuse Note Plasma/Serum Alcohol (0-0.07) % Coronavirus (PCR) (Negative) 08/05/21 08/05/21 08/05/21 Range/Units 19:11 19:11 23:41 WBC (4.5-11.0) K/mm3 RBC (3.65-5.03) M/mm3 Hgb (10.1-14.3) gm/dl Hct (30.3-42.9) % MCV (79-97) fl MCH (28-32) pg MCHC (30-34) % RDW (13.2-15.2) % Plt Count (140-440) K/mm3 Lymph % (Auto) (13.4-35.0) % [place] % (Auto) (0.0-7.3) % Eos % (Auto) (0.0-4.3) % Baso % (Auto) (0.0-1.8) % Lymph # (Auto) (1.2-5.4) K/mm3 [place] # (Auto) (0.0-0.8) K/mm3 Eos # (Auto) (0.0-0.4) K/mm3 Baso # (Auto) (0.0-0.1) K/mm3 Seg Neutrophils % (40.0-70.0) % Seg Neutrophils # (1.8-7.7) K/mm3 Sodium (137-145) mmol/L Potassium (3.6-5.0) mmol/L Chloride (98-107) mmol/L Carbon Dioxide (22-30) mmol/L Anion Gap mmol/L BUN (7-17) mg/dL Creatinine (0.6-1.2) mg/dL Estimated GFR ml/min BUN/Creatinine Ratio % Glucose (65-100) mg/dL Calcium (8.4-10.2) mg/dL HCG, Quant (0-4) mIU/mL Urine Color Yellow (Yellow) Urine Turbidity Slightly-cloudy (Clear) Urine pH 5.0 (5.0-7.0) Ur Specific [place] 1.011 (1.003-1.030) Urine Protein <15 mg/dl (Negative) mg/dL Urine Glucose (UA) Neg (Negative) mg/dL Urine Ketones 80 (Negative) mg/dL Urine Blood Mod (Negative) Urine Nitrite Pos (Negative) Urine Bilirubin Neg (Negative) Urine Urobilinogen < 2.0 (<2.0) mg/dL Ur Leukocyte Esterase Lg (Negative) Urine WBC (Auto) 101.0 H (0.0-6.0) /HPF Urine RBC (Auto) 2.0 (0.0-6.0) /HPF U Epithel Cells (Auto) 10.0 (0-13.0) /HPF Urine Bacteria (Auto) 2+ (Negative) /HPF Urine Mucus Few /HPF Urine Yeast (Budding) 1+ /HPF Salicylates (2.8-20.0) mg/dL Urine Opiates Screen Urine Methadone Screen Acetaminophen 5.0 L (10.0-30.0) ug/mL Ur Barbiturates Screen Ur Phencyclidine Scrn Ur Amphetamines Screen U Benzodiazepines Scrn Urine Cocaine Screen U Marijuana (THC) Screen Drugs of Abuse Note Plasma/Serum Alcohol < 0.01 (0-0.07) % Coronavirus (PCR) (Negative) 08/05/21 08/06/21 08/06/21 Range/Units 23:41 08:40 Unknown WBC (4.5-11.0) K/mm3 RBC (3.65-5.03) M/mm3 Hgb (10.1-14.3) gm/dl Hct (30.3-42.9) % MCV (79-97) fl MCH (28-32) pg MCHC (30-34) % RDW (13.2-15.2) % Plt Count (140-440) K/mm3 Lymph % (Auto) (13.4-35.0) % [place] % (Auto) (0.0-7.3) % Eos % (Auto) (0.0-4.3) % Baso % (Auto) (0.0-1.8) % Lymph # (Auto) (1.2-5.4) K/mm3 [place] # (Auto) (0.0-0.8) K/mm3 Eos # (Auto) (0.0-0.4) K/mm3 Baso # (Auto) (0.0-0.1) K/mm3 Seg Neutrophils % (40.0-70.0) % Seg Neutrophils # (1.8-7.7) K/mm3 Sodium (137-145) mmol/L Potassium (3.6-5.0) mmol/L Chloride (98-107) mmol/L Carbon Dioxide (22-30) mmol/L Anion Gap mmol/L BUN (7-17) mg/dL Creatinine (0.6-1.2) mg/dL Estimated GFR ml/min BUN/Creatinine Ratio % Glucose (65-100) mg/dL Calcium (8.4-10.2) mg/dL HCG, Quant < 2 (0-4) mIU/mL Urine Color (Yellow) Urine Turbidity (Clear) Urine pH (5.0-7.0) Ur Specific [place] (1.003-1.030) Urine Protein (Negative) mg/dL Urine Glucose (UA) (Negative) mg/dL Urine Ketones (Negative) mg/dL Urine Blood (Negative) Urine Nitrite (Negative) Urine Bilirubin (Negative) Urine Urobilinogen (<2.0) mg/dL Ur Leukocyte Esterase (Negative) Urine WBC (Auto) (0.0-6.0) /HPF Urine RBC (Auto) (0.0-6.0) /HPF U Epithel Cells (Auto) (0-13.0) /HPF Urine Bacteria (Auto) (Negative) /HPF Urine Mucus /HPF Urine Yeast (Bud[place]) /HPF Salicylates (2.8-20.0) mg/dL Urine Opiates Screen Presumptive negative Urine Methadone Screen Presumptive negative Acetaminophen (10.0-30.0) ug/mL Ur Barbiturates Screen Presumptive negative Ur Phencyclidine Scrn Presumptive negative Ur Amphetamines Screen Presumptive positive U Benzodiazepines Scrn Presumptive negative Urine Cocaine Screen Presumptive negative U Marijuana (THC) Screen Presumptive negative Drugs of Abuse Note Disclamer Plasma/Serum Alcohol (0-0.07) % Coronavirus (PCR) Positive A (Negative) Vital Signs 08/05/21 08/05/21 08/06/21 18:08 23:44 03:00 Temperature 97.9 F 97.5 F L Pulse Rate 109 H 90 Respiratory 18 16 Rate Blood Pressure 134/93 117/68 [Right] O2 Sat by Pulse 97 100 96 Oximetry 08/06/21 08/06/21 08/06/21 06:00 19:50 21:47 Temperature 99 F Pulse Rate 90 Respiratory 18 18 Rate Blood Pressure 93/55 [Right] O2 Sat by Pulse 100 98 98 Oximetry 08/07/21 08/07/21 12:34 19:49 Temperature 98.0 F 98.8 F Pulse Rate 89 105 H Respiratory 18 18 Rate Blood Pressure 110/82 128/78 [Right] O2 Sat by Pulse 98 96 Oximetry
[2021-08-07] MEDS: LITHIUM CARBONATE 300 MG CAP PO SCH (13:28)
[2021-08-07] MEDS: NITROFURANTOIN MONOHYD/M-CRYST 100 MG CAP PO SCH ×2 (13:29→22:23)
[2021-08-07] MEDS: QUEtiapine 25 MG TAB PO SCH ×2 (13:29→22:23)
[2021-08-07] MEDS: traZODone 50 MG TAB PO SCH (22:23)
--- NOTE | 2021-08-08 09:36 | Progress Note ---
Subjective - Reason for Consult Consult date: 08/08/21 Reason for consult: mental health evaluation - Chief Complaint Chief complaint: The patient was seen this morning,she reports doing better. She reports sleep and appetite as good. The patient denies any current suicidal ideation and denies hallucinations. THE PATIENT DENIES ANY URGE TO CUT. REVIEW OF SYSTEMS Constitutional: Negative for weight loss ENT: Negative for stridor Respiratory: Negative for cough or hemoptysis All other systems reviewed and are negative MENTAL STATUS EXAMINATION General Appearance and Behavior: Age appropriate, good hygiene, not wearing appropriate clothes, good eye contact, cooperative polite with questioning. Cooperation: Participating/engaged Psychomotor Behavior: Psychomotor normal Mood: "OK" Affect and affective range: Congruent with stated mood Thought Process: goal directed Thought Content: None Speech: normal tone and pace Suicidal Ideation: Denies Homicidal Ideation: Denies HI Hallucinations: Denies Delusions: None elicited Impulse Control: Limited Insight and Judgment: Limited insight and GOOD judgment Memory: Normal Attention: Normal Orientation: Alert, oriented, Assessment and Plan Methamphetamine Use Disorder Bipolar Disorder, Current Episode Depressed Noncompliance with other medical treatment and regimen Treatment DC 1013 Restart home meds Start Seroquel 25mg po BID Start [place] 300mg po daily Start Trazodone 50mg po qhs Medical: Per primary Sitter: Defer to [facility] Disposition: Do not recommend acute inpatient treatment. [employer] will provide patient with psychiatric out-patient resources and safety plan. Will sign off. Medications and Allergies Mental Status Exam - Vital signs Last Vital Signs Temp 98.8 F 08/07/21 19:49 Pulse 105 H 08/07/21 19:49 Resp 18 08/07/21 22:00 BP 128/78 08/07/21 19:49 Pulse Ox 96 08/07/21 22:00
[2021-08-08] MEDS: LITHIUM CARBONATE 300 MG CAP PO SCH (11:17)
[2021-08-08] MEDS: NITROFURANTOIN MONOHYD/M-CRYST 100 MG CAP PO SCH ×2 (11:17→22:26)
[2021-08-08] MEDS: QUEtiapine 25 MG TAB PO SCH ×2 (11:17→22:43)
--- NOTE | 2021-08-08 12:40 | Event Note ---
Date: 08/08/21 25-year-old female here with self-harm/cutting behavior and psychosis. She was seen by my colleague and was diagnosed with urinary tract infection for which she has been placed on antibiotics. She is medically cleared for psychiatric evaluation and placement. She later tested positive for Covid 19. Vital signs reviewed and are stable. No acute events overnight. She was seen by the mental health/psychiatry team today who recommended discontinuing the 1013 and discharging the patient with outpatient follow-up.
[2021-08-08] MEDS: traZODone 50 MG TAB PO SCH (22:26)
[2021-08-08 23:15] VITALS: BP 121/69
== END 2021-08-08 23:26 | disposition home or self-care (01) ==
LOC: ED 17:36
DX: U07.1 COVID-19 (principal); S51.812A Laceration without foreign body of left forearm, initial encounter; S51.811A Laceration without foreign body of right forearm, initial encounter; F17.200 Nicotine dependence, unspecified, uncomplicated; Z90.49 Acquired absence of other specified parts of digestive tract; X83.8XXA Intentional self-harm by other specified means, initial encounter; Y93.89 Activity, other specified; Y92.89 Other specified places as the place of occurrence of the external cause; Y99.8 Other external cause status
CPT/HCPCS: 36415; 80048; 80307; 81001; 84702; 85025; 96372; 99284; J3486; U0003; 80320; J3490; G0480; Q0162